=== PATIENT | male | born 1995 | race African-American/Black ===

== ENCOUNTER 2017-12-03 08:45 | Emergency (ER) | payer OTHER ==
[2017-12-03] MEDS ORDERED: SODIUM CHLORIDE 0.9% 1,000 ML IV ONE (09:16)
[2017-12-03] MEDS ORDERED: ACETAMINOPHEN 1,000 MG/100 ML 100 ML IV STA (09:16)
[2017-12-03] MEDS ORDERED: ONDANSETRON 4 MG/2 ML VIAL IVP STA (09:16)
--- NOTE | 2017-12-03 09:19 | ED Physician Documentation ---
History of Present Illness - Stated complaint Stated Complaint: N/V/HEADACHE - Chief complaint Chief Complaint: Abd Pain - Additonal information Additional information: hx from pt 22 [place] male NVD upper abd pain X 2 days head hurts when he vomits no travel no bad food no sick contacts no blood in vomit or stool no prior surgery Review of Systems Constitutional: denies: Fever, Chills Cardiac: denies: Chest pain / pressure Respiratory: denies: Dyspnea, Cough GI: reports: Abdominal Pain, Nausea, Vomiting, Diarrhea. denies: Hematemesis, Bloody / black stool Neurologic: reports: Headache (when he vomiting) Immunocompromised: denies: Immunocompromised PD PAST MEDICAL HISTORY - Present Medications Home Medications: Ambulatory Orders Medication Instructions Recorded Confirmed No Known Home Medications [No 12/03/17 12/03/17 Known Home Medications] - Allergies Allergies/Adverse Reactions: Allergies Allergy/AdvReac Type Severity Reaction Status Date / Time No Known Drug Allergies Allergy Verified 12/03/17 09:00 PD ED PE NORMAL - Vitals Vital signs reviewed: Yes - General General: Alert and oriented X 3 - HEENT HEENT: PERRL - Neck Neck: Supple, no meningeal sign - Cardiac Cardiac: RRR - Respiratory Respiratory: No respiratory distress, Clear bilaterally - Abdomen Abdomen: Other (mod TTP epigastric LUQ region s rebound or guarding) - Derm Derm: Normal color - Extremities Extremities: No deformity, Normal ROM s pain - Neuro Neuro: Alert and oriented X 3 Eye Opening: Spontaneous Motor: Obeys Commands Verbal: Oriented GCS Score: 15 Results - Vitals Vitals: Vital Signs - 24 hr 12/03/17 12/03/17 08:56 10:40 Temperature 36.2 C L Heart Rate 54 L 64 Respiratory 16 16 Rate Blood Pressure 139/76 H 124/62 O2 Saturation 96 98 Oxygen O2 Source Room air - Labs Labs: Laboratory Tests 12/03/17 12/03/17 09:05 09:05 WBC 6.1 RBC 4.72 Hgb 15.4 Hct 45.1 MCV 95.4 H MCH 32.6 H MCHC 34.1 RDW 12.9 Plt Count 172 MPV 9.2 Neut # (Auto) 4.5 Lymph # (Auto) 1.1 L [place] # (Auto) 0.4 Eos # (Auto) 0.0 Baso # (Auto) 0.1 Absolute Nucleated RBC 0.00 Nucleated RBC % 0.0 Sodium 133 L Potassium 3.8 Chloride 101 Carbon Dioxide 25 Anion Gap 7.0 BUN 16 Creatinine 1.1 Estimated GFR (MDRD) 101 Glucose 89 Calcium 9.2 Total Bilirubin 1.5 H AST 31 ALT 25 Alkaline Phosphatase 67 Total Protein 7.8 Albumin 4.2 Globulin 3.6 Albumin/Globulin Ratio 1.2 Lipase 22 PD MEDICAL DECISION MAKING - ED course ED course: bili mildly elevated but pt has no RUQ pain at all - it is LUQ better with IVF zofran and ofirmev and toradol will dc - Sepsis Event Vital Signs: Vital Signs - 24 hr 12/03/17 12/03/17 08:56 10:40 Temperature 36.2 C L Heart Rate 54 L 64 Respiratory 16 16 Rate Blood Pressure 139/76 H 124/62 O2 Saturation 96 98 Oxygen O2 Source Room air Departure - Departure Disposition: 01 Home, Self Care Clinical Impression: Dehydration Vomiting Qualifiers: Vomiting type: unspecified Vomiting Intractability: non-intractable Nausea presence: with nausea Qualified Code(s): R11.2 - Nausea with vomiting, unspecified Diarrhea Qualifiers: Diarrhea type: unspecified type Qualified Code(s): R19.7 - Diarrhea, unspecified Condition: Good Instructions: ED Dehydration, ED Diet Vomiting Diarrhea Follow-Up: [facility] [Provider Group] (for a recheck tomorrow ) Comments: Your labs looked fine except for a mildly elevated liver/gallbladder test called bilirubin. But you did not hurt near your liver or gallbladder so this is not something to worry about right now. I think your symptoms are due to stomach virus. But sometimes, more serious problems like appendicitis and gallstones can start off looking like a stomach virus. So if you get worse over the next few days, especially if you develop right sided pain, please come back to the ER for us to check you again and make sure something more serious is not developing For today go home and rest and drink plenty of fluids. I prescribed zofran to keep the vomiting under control. Follow up with [facility] medical tomorrow for a recheck - but come back to the ER if worsening Forms: Activity restrictions
[2017-12-03 09:36] LABS: BASOPHILS # (AUTO) 0.1 10^3/uL (0.0-0.1); EOSINOPHILS % (AUTO) 0.5 %; HGB - HEMOGLOBIN 15.4 g/dL (14.0-18.0); LYMPHOCYTES # (AUTO) 1.1 10^3/uL (1.5-3.5); LYMPHOCYTES % (AUTO) 17.8 %; MEAN CORPUSCULAR HEMOGLOBIN 32.6 pg (27.0-31.0); MEAN CORPUSCULAR HGB CONC 34.1 g/dL (32.0-36.0); MEAN CORPUSCULAR VOLUME 95.4 fL (80.0-94.0); MEAN PLATELET VOLUME 9.2 fL (7.4-11.4); MONOCYTES # (AUTO) 0.4 10^3/uL (0.0-1.0); NEUTROPHILS # (AUTO) 4.5 10^3/uL (1.5-6.6); NEUTROPHILS % (AUTO) 73.7 %; PLT - PLATELET COUNT 172 10^3/uL (130-450); RED BLOOD COUNT 4.72 10^6/uL (4.70-6.10); RED CELL DISTRIBUTION WIDTH 12.9 % (12.0-15.0); WHITE BLOOD COUNT 6.1 x10^3/uL (4.8-10.8)
[2017-12-03 09:49] LABS: ALBUMIN 4.2 g/dL (3.2-5.5); ALBUMIN/GLOBULIN RATIO 1.2 (1.0-2.2); BILIRUBIN,TOTAL 1.5 mg/dL (0.2-1.0); CALCIUM 9.2 mg/dL (8.5-10.3); CREATININE 1.1 mg/dL (0.6-1.2); TOTAL PROTEIN 7.8 g/dL (6.7-8.2)
[2017-12-03 10:42] VITALS: BP 124/62
[2017-12-03] MEDS ORDERED: KETOROLAC 60 MG/2 ML VIAL IVP STA (10:49)
== END 2017-12-03 11:46 | disposition home or self-care (01) ==
LOC: ED 08:45
DX: E86.0 Dehydration (principal); R17 Unspecified jaundice
CPT/HCPCS: 36415; 80053; 83690; 85025; 96365; 96375; 99283; 99284; J0131

== ENCOUNTER 2018-01-03 14:48 | Emergency (ER) | payer OTHER ==
--- NOTE | 2018-01-03 18:29 | ED Physician Documentation ---
History of Present Illness - Stated complaint Stated Complaint: R FINGER LAC - Chief complaint Chief Complaint: Laceration - Additonal information Additional information: hx from pt 22 male healthy immunized AD [place] lac from metal can palmar aspect mid phalange R index Review of Systems Skin: reports: Laceration (s) PD PAST MEDICAL HISTORY - Past Medical History Past Medical History: No Cardiovascular: None Respiratory: Asthma Neuro: None Endocrine/Autoimmune: None GI: None : None HEENT: None Psych: None Musculoskeletal: None Derm: None - Past Surgical History Past Surgical History: No - Allergies Allergies/Adverse Reactions: Allergies Allergy/AdvReac Type Severity Reaction Status Date / Time No Known Drug Allergies Allergy Verified 01/03/18 15:02 - Social History Does the pt smoke?: No Smoking Status: Never smoker Does the pt drink ETOH?: Yes Does the pt have substance abuse?: No - Immunizations Immunizations are current?: Yes - POLST Patient has POLST: No PD ED PE NORMAL - Vitals Vital signs reviewed: Yes - Derm Derm: Other (lac) - Neuro Neuro: No motor deficit, Other (dec sensation radial and plamr finger distal to lac, tendon fxn intact, no active bleeding). No: No sensory deficit Results - Vitals Vitals: Vital Signs - 24 hr 01/03/18 14:57 Temperature 36.3 C L Heart Rate 75 Respiratory 18 Rate Blood Pressure 144/84 H O2 Saturation 95 Oxygen O2 Source Room air Procedures - Laceration (location) R finger Length in cm: 2 Wound type: Linear Neurovascular status: Motor intact. No: Sensory intact Tendon involvement: Tendon intact Anesthesia: Lidocaine 2% Wound Preparation: Irrigated copiously NS, To the base. No: FB identified Skin layer closure: Nylon Other: Patient tolerated well, No complications, Dressing applied, Tetanus UTD. No: Neurovascular intact Complexity: Simple PD MEDICAL DECISION MAKING - ED course ED course: wound repaired dec sensation radial side of finger possible nerve injury emphasized to pt importance of close follow up with hand - Sepsis Event Vital Signs: Vital Signs - 24 hr 01/03/18 14:57 Temperature 36.3 C L Heart Rate 75 Respiratory 18 Rate Blood Pressure 144/84 H O2 Saturation 95 Oxygen O2 Source Room air Departure - Departure Disposition: 01 Home, Self Care Clinical Impression: Laceration Condition: Good Instructions: ED Laceration Hand Follow-Up: [facility] [Provider Group] Comments: You may have injured the nerve on the thumb side of the finger Please follow up with [facility] medical tomorrow for a recheck - if still numb, you will need a referral to a hand specialist - the right index is a very important finger and close follow up is very very important Otherwise keep the wound clean, apply antibiotic ointment twice a day, wear the splint to protect the area and pulling the stitches out, and see [facility] in 10 days for suture removal Forms: Activity restrictions
[2018-01-03] MEDS: LIDOCAINE 2% 10 ML MDV SUBQ STA (19:06)
[2018-01-03 19:48] VITALS: BP 148/81
== END 2018-01-03 19:47 | disposition home or self-care (01) ==
LOC: ED 14:48
DX: S61.210A Laceration without foreign body of right index finger without damage to nail, initial encounter (principal); W26.8XXA Contact with other sharp object(s), not elsewhere classified, initial encounter; Y93.89 Activity, other specified
CPT/HCPCS: 12001; 99283

== ENCOUNTER 2018-02-03 13:33 | Outpatient (CLI) | payer OTHER | END 2018-02-03 13:34 | disposition home or self-care (01) | LOC: SC 13:33 | PROVIDERS: ATTEND Internal Medicine Pulmonary Disease | DX: G47.30 Sleep apnea, unspecified (principal); G47.10 Hypersomnia, unspecified; R06.83 Snoring; G47.8 Other sleep disorders | CPT/HCPCS: 99203; 99212 ==

== ENCOUNTER 2018-05-12 20:30 | Outpatient (CLI) | payer OTHER | END 2018-05-12 22:59 | disposition home or self-care (01) | LOC: SC 20:30 | PROVIDERS: ATTEND Internal Medicine Pulmonary Disease | DX: G47.33 Obstructive sleep apnea (adult) (pediatric) (principal); I49.9 Cardiac arrhythmia, unspecified | CPT/HCPCS: 95811 ==

== ENCOUNTER 2018-07-29 11:34 | Emergency (ER) | payer OTHER ==
[2018-07-29 11:45] VITALS: BP 133/78
[2018-07-29] MEDS ORDERED: PROPARACAINE 0.5% OPHTH DROPS 15 ML LEFTEYE STA (12:40)
[2018-07-29] MEDS ORDERED: SODIUM CHLORIDE 0.9% 1,000 ML IV ONE (13:07)
[2018-07-29] MEDS ORDERED: ERYTHROMYCIN OPHTH OINT 1 GM TUBE TOP STA (13:40)
--- NOTE | 2018-07-29 13:42 | ED Physician Documentation ---
PD HPI OPHTHO - Stated complaint Stated Complaint: CHEMICAL IN EYES - Chief complaint Chief Complaint: Heent - Additional information Additional information: 23-year-old male presents the emergency department after having a chemical splashed into his left eye at work. The patient immediately flushed his eye at work for 15-minute per their protocol. The patient denies any loss of vision or change in vision. The patient says his eye feels funny but denies foreign body sensation or ocular pain or swelling. The patient does wear glasses intermittently for reading but has no other corrective lenses. No other associated symptoms. Symptoms are described as mild. Review of Systems Constitutional: denies: Fever, Chills, Fatigue Eyes: reports: Irritation. denies: Loss of vision, Decreased vision, Photophobia Ears: denies: Ear pain Nose: denies: Congestion Cardiac: denies: Chest pain / pressure GI: denies: Abdominal Pain Neurologic: denies: Focal weakness PD PAST MEDICAL HISTORY - Past Medical History Cardiovascular: None Respiratory: Asthma Neuro: None Endocrine/Autoimmune: None GI: None : None HEENT: None Psych: None Musculoskeletal: None Derm: None - Past Surgical History Past Surgical History: No - Allergies Allergies/Adverse Reactions: Allergies Allergy/AdvReac Type Severity Reaction Status Date / Time No Known Drug Allergies Allergy Verified 07/29/18 11:45 - Social History Does the pt smoke?: No Smoking Status: Never smoker Does the pt drink ETOH?: Yes Does the pt have substance abuse?: No - Immunizations Immunizations are current?: Yes - POLST Patient has POLST: No PD ED PE NORMAL - General General: Alert and oriented X 3, No acute distress - HEENT HEENT: Atraumatic, PERRL - Extremities Extremities: No deformity - Neuro Neuro: Alert and oriented X 3, Normal speech - Psych Psych: Normal mood PD ED PE EXPANDED - Eyes Eyes: Left eye, Normal eyelids, No eyelid FB (everted), Injected conj/sclera, Normal corneas, Anterior chambers clear, Other (The pH of the eye was 7.0). No: Eyelid injury, Eyelid swelling, Eyelid erythema, Exudate, Scleral icterus, Fluorescein uptake, Hyphema, Ant chamber cells/flare Results - Vitals Vitals: Vital Signs - 24 hr 07/29/18 11:42 Temperature 36.5 C Heart Rate 68 Respiratory 14 Rate Blood Pressure 133/78 H O2 Saturation 95 Oxygen O2 Source Room air PD MEDICAL DECISION MAKING - ED course ED course: The patient's eye was irrigated again with 1000 mL's of normal saline with a Branden's lens. The patient's pH is within normal limits. The patient will be discharged home And has been advised to follow-up with medical on base of his symptoms not improving he will get a referral to ophthalmology. The patient will return to the emergency department for any worsening or any concerns. Departure - Departure Disposition: 01 Home, Self Care Clinical Impression: Chemical exposure of eye Condition: Good Instructions: Corneal Injury Follow-Up: [facility] [Provider Group] - Within 3 Days (If your symptoms are not improving please ask for referral to ophthalmology) Comments: Please return to the emergency department for any worsening or any concerns
== END 2018-07-29 13:49 | disposition home or self-care (01) ==
LOC: ED 11:34
DX: H57.89 Other specified disorders of eye and adnexa (principal); Z77.098 Contact with and (suspected) exposure to other hazardous, chiefly nonmedicinal, chemicals; X58.XXXA Exposure to other specified factors, initial encounter; Y93.89 Activity, other specified; Y99.0 Civilian activity done for income or pay
CPT/HCPCS: 99283; J3490

== ENCOUNTER 2018-08-29 16:10 | Outpatient (CLI) | payer OTHER | END 2018-08-29 16:11 | disposition home or self-care (01) | LOC: SC 16:10 | PROVIDERS: ATTEND Nurse Practitioner Family | DX: G47.33 Obstructive sleep apnea (adult) (pediatric) (principal); I49.9 Cardiac arrhythmia, unspecified | CPT/HCPCS: 99212; 99214 ==

== ENCOUNTER 2018-11-08 15:42 | Outpatient (CLI) | payer OTHER | END 2018-11-08 15:43 | disposition home or self-care (01) | LOC: SC 15:42 | PROVIDERS: ATTEND Nurse Practitioner Family | DX: G47.33 Obstructive sleep apnea (adult) (pediatric) (principal) | CPT/HCPCS: 99212; 99214 ==

== ENCOUNTER 2018-12-07 17:01 | Emergency (ER) | payer OTHER ==
[2018-12-07 17:07] VITALS: BP 149/82
[2018-12-07] MEDS ORDERED: KETOROLAC 60 MG/2 ML VIAL IM STA (17:24)
[2018-12-07] MEDS ORDERED: CHERRY SYRUP 10 ML UDC PO ONE (17:25)
[2018-12-07] MEDS ORDERED: DEXAMETHASONE 10 MG/ML VIAL PO STA (17:25)
[2018-12-07] MEDS ORDERED: oxyCODONE 5 MG TABLET PO STA (17:27)
--- NOTE | 2018-12-07 17:27 | ED Physician Documentation ---
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 His pain started suddenly 1 hour prior to arrival while doing PT in the gym. He was doing a twisting activity when he felt a "pop" in his lower back. He denies numbness or weakness in his lower extremities, but the pain does radiate down his right leg. He denies urinary incontinence or fever. He denies history of similar symptoms in the past. Review of Systems Constitutional: denies: Fever Nose: denies: Congestion Cardiac: denies: Chest pain / pressure Respiratory: denies: Dyspnea, Cough GI: denies: Abdominal Pain, Nausea, Vomiting : denies: Dysuria, Incontinent Skin: denies: Rash Musculoskeletal: reports: Back pain Neurologic: denies: Focal weakness, Numbness PD PAST MEDICAL HISTORY - Past Medical History Past Medical History: No Cardiovascular: None Respiratory: Asthma Neuro: None Endocrine/Autoimmune: None GI: None : None HEENT: None Psych: None Musculoskeletal: None Derm: None - Past Surgical History Past Surgical History: No - Present Medications Home Medications: Ambulatory Orders Medication Instructions Recorded Confirmed Hydrocodone/Acetaminophen 1 - 2 each PO Q6H PRN #14 tablet 12/07/18 [Hydrocodon-Acetaminophen 5-325] Ibuprofen [Ibu] 800 mg PO TID PRN #30 tablet 12/07/18 Lidocaine Patch 5% [Lidoderm Patch] 1 patch TOP DAILY PRN #10 patch 12/07/18 - Allergies Allergies/Adverse Reactions: Allergies Allergy/AdvReac Type Severity Reaction Status Date / Time No Known Drug Allergies Allergy Verified 12/07/18 17:06 - Social History Does the pt smoke?: No Smoking Status: Never smoker Does the pt drink ETOH?: Yes Does the pt have substance abuse?: No - Immunizations Immunizations are current?: Yes - POLST Patient has POLST: No PD ED PE NORMAL - Vitals Vital signs reviewed: Yes (Borderline systolic hypertension.) - General General: Alert and oriented X 3, Well developed/nourished - HEENT HEENT: Atraumatic - Neck Neck: No bony TTP - Cardiac Cardiac: RRR - Respiratory Respiratory: No respiratory distress, Clear bilaterally - Abdomen Abdomen: Soft, Non tender - Back Back: No CVA TTP, No spinal TTP, Other (Tenderness to palpation in the lower lumbar region, and the right sacroiliac region. No specific tenderness to palpation along the spinous processes.) - Derm Derm: No rash - Extremities Extremities: No edema, No calf tenderness / cord, Other (Straight leg raise test is positive on the right at 20 degrees elevation; negative on the left.) - Neuro Neuro: Alert and oriented X 3, No motor deficit, No sensory deficit, Other (Deep tendon reflexes are 2+ and equal bilaterally at the patellar and Achilles tendons.) Results - Vitals Vitals: Vital Signs - 24 hr 12/07/18 17:04 Temperature 36.8 C Heart Rate 85 Respiratory 16 Rate Blood Pressure 149/82 H O2 Saturation 97 Oxygen O2 Source Room air PD MEDICAL DECISION MAKING - ED course Complexity details: re-evaluated patient, considered differential, d/w patient ED course: The patient's lower back pain is most consistent with acute low back strain. The clinical presentation does not suggest epidural abscess, spinal stenosis, or cauda equina syndrome. Treatment in the emergency department included administration of Toradol 60 mg IM, oxycodone 5 mg orally, and dexamethasone 10 mg orally. The patient is being discharged with prescription for ibuprophen, lidoderm patch, and vicodin, 14 tablets. I discussed with him the expected course of illness, symptomatic treatment and outpatient follow-up, as well as potentially worrisome signs or symptoms that should prompt reevaluation in the emergency department. Departure - Departure Disposition: 01 Home, Self Care Clinical Impression: Acute lumbosacral myofascial strain Qualifiers: Encounter type: initial encounter Qualified Code(s): S39.012A - Strain of muscle, fascia and tendon of lower back, initial encounter Condition: Stable Instructions: ED Sprain Strain Lumbar Follow-Up: [facility] [Provider Group] Prescriptions: Hydrocodone/Acetaminophen [Hydrocodon-Acetaminophen 5-325] 1 - 2 each PO Q6H PRN #14 tablet PRN Reason: pain Ibuprofen [Ibu] 800 mg PO TID PRN #30 tablet PRN Reason: Pain Lidocaine Patch 5% [Lidoderm Patch] 1 patch TOP DAILY PRN #10 patch PRN Reason: pain Comments: Apply ice pack to your lower back intermittently for the next 3 or 4 days. You can use ibuprofen, up to 800 mg 3 times daily for its anti-inflammatory effect. Apply Lidoderm Patch daily as prescribed. You can use as Vicodin as prescribed if needed for pain. Let pain be your guide to activity level. Follow up with your primary physician within 1-2 weeks. Call to schedule an appointment. Return to the emergency department if you develop increasing pain, numbness or weakness, urinary incontinence, or otherwise worsening symptoms. Forms: Activity restrictions
== END 2018-12-07 18:04 | disposition home or self-care (01) ==
LOC: ED 17:01
DX: S39.012A Strain of muscle, fascia and tendon of lower back, initial encounter (principal); X50.1XXA Overexertion from prolonged static or awkward postures, initial encounter; Y93.79 Activity, other specified sports and athletics; Y92.39 Other specified sports and athletic area as the place of occurrence of the external cause
CPT/HCPCS: 96372; 99283; A9270

== ENCOUNTER 2019-02-28 04:45 | Emergency (ER) | payer OTHER ==
[2019-02-28 05:30] LABS: BASOPHILS # (AUTO) 0.1 10^3/uL (0.0-0.1); BASOPHILS % (AUTO) 1.1 %; EOSINOPHILS # (AUTO) 0.1 10^3/uL (0.0-0.7); EOSINOPHILS % (AUTO) 2.2 %; HGB - HEMOGLOBIN 15.2 g/dL (14.0-18.0); LYMPHOCYTES # (AUTO) 1.4 10^3/uL (1.5-3.5); LYMPHOCYTES % (AUTO) 25.8 %; MEAN CORPUSCULAR HEMOGLOBIN 32.2 pg (27.0-31.0); MEAN CORPUSCULAR HGB CONC 33.9 g/dL (32.0-36.0); MEAN CORPUSCULAR VOLUME 95.1 fL (80.0-94.0); MEAN PLATELET VOLUME 10.6 fL (7.4-11.4); MONOCYTES # (AUTO) 0.5 10^3/uL (0.0-1.0); MONOCYTES % (AUTO) 8.3 %; NEUTROPHILS # (AUTO) 3.5 10^3/uL (1.5-6.6); NEUTROPHILS % (AUTO) 62.4 %; PLT - PLATELET COUNT 222 10^3/uL (130-450); RED BLOOD COUNT 4.72 10^6/uL (4.70-6.10); WHITE BLOOD COUNT 5.6 x10^3/uL (4.8-10.8)
[2019-02-28 05:42] LABS: ALBUMIN 4.7 g/dL (3.2-5.5); ALBUMIN/GLOBULIN RATIO 1.5 (1.0-2.2); BILIRUBIN,TOTAL 1.6 mg/dL (0.2-1.0); TOTAL PROTEIN 7.9 g/dL (6.7-8.2)
[2019-02-28 06:26] LABS: BILIRUBIN,URINE NEGATIVE (NEGATIVE); GLUCOSE, URINE (UA) NEGATIVE (NEGATIVE); KETONES,URINE (UA) 40 mg/dL (NEGATIVE); LEUKOCYTE ESTERASE, URINE NEGATIVE (NEGATIVE); NITRITE,URINE NEGATIVE (NEGATIVE); OCCULT BLOOD,URINE NEGATIVE (NEGATIVE); PROTEIN,URINE NEGATIVE (NEGATIVE); UROBILINOGEN,URINE 1 (NORMAL) E.U./dL (NORMAL)
[2019-02-28 06:30] LABS: CLARITY,URINE CLEAR (CLEAR)
--- NOTE | 2019-02-28 07:22 | ED Physician Documentation ---
PD HPI NVD - Stated complaint Stated Complaint: DIZZY/SOA/N/V - Chief complaint Chief Complaint: General - History obtained from History obtained from: Patient - History of Present Illness Timing - onset: How many days ago (2-3) Timing - duration: Days (2-3) Timing - details: Gradual onset Associated symptoms: Fever, Abdominal pain (crampy lower/mid abd pain) Contributing factors: No: Sick contact, Bad food, Travel, Recent antibiotics Worsened by: Eating Similar symptoms before: Has not had sx before Review of Systems Constitutional: reports: Fever, Chills Nose: denies: Rhinorrhea / runny nose, Congestion Throat: denies: Sore throat Respiratory: denies: Cough, Wheezing GI: reports: Abdominal Pain, Nausea, Diarrhea. denies: Abdominal Swelling, Vomiting : denies: Dysuria, Frequency PD PAST MEDICAL HISTORY - Past Medical History Past Medical History: No Cardiovascular: None Respiratory: Asthma Neuro: None Endocrine/Autoimmune: None GI: None : None HEENT: None Psych: None Musculoskeletal: None Derm: None - Past Surgical History Past Surgical History: Yes - Present Medications Home Medications: Ambulatory Orders Medication Instructions Recorded Confirmed Dicyclomine [Bentyl] 10 mg PO QID PRN #12 capsule 02/28/19 Diphenoxylate/Atropine [Lomotil] 1 each PO QID PRN #12 tablet 02/28/19 Ondansetron Odt [Zofran] 4 mg TL Q6H PRN #10 tablet 02/28/19 - Allergies Allergies/Adverse Reactions: Allergies Allergy/AdvReac Type Severity Reaction Status Date / Time No Known Drug Allergies Allergy Verified 02/28/19 05:07 - Social History Does the pt smoke?: No Smoking Status: Never smoker Does the pt drink ETOH?: No Does the pt have substance abuse?: No - Immunizations Immunizations are current?: Yes - POLST Patient has POLST: No PD ED PE NORMAL - Vitals Vital signs reviewed: Yes - General General: Alert and oriented X 3, No acute distress, Well developed/nourished - HEENT HEENT: Pharynx benign - Neck Neck: Supple, no meningeal sign, No adenopathy - Cardiac Cardiac: RRR, No murmur - Respiratory Respiratory: Clear bilaterally - Abdomen Abdomen: Normal bowel sounds, Soft, Non distended, No organomegaly, Other (ten joceline periumbilical and some RLQ with mild guarding but no percussion tenderness. ) - Derm Derm: Normal color, Warm and dry - Extremities Extremities: Normal ROM s pain - Neuro Neuro: Alert and oriented X 3, No motor deficit, Normal speech Results - Vitals Vitals: Vital Signs - 24 hr 02/28/19 02/28/19 02/28/19 05:04 05:16 08:47 Temperature 36.9 C 36.5 C Heart Rate 59 L 50 L Respiratory 16 16 18 Rate Blood Pressure 153/71 H 143/75 H O2 Saturation 98 99 Oxygen O2 Source Room air - Labs Labs: Laboratory Tests 02/28/19 02/28/19 02/28/19 05:24 05:24 06:00 WBC 5.6 RBC 4.72 Hgb 15.2 Hct 44.9 MCV 95.1 H MCH 32.2 H MCHC 33.9 RDW 12.0 Plt Count 222 MPV 10.6 Neut # (Auto) 3.5 Lymph # (Auto) 1.4 L [place] # (Auto) 0.5 Eos # (Auto) 0.1 Baso # (Auto) 0.1 Absolute Nucleated RBC 0.00 Nucleated RBC % 0.0 Sodium 139 Potassium 4.0 Chloride 102 Carbon Dioxide 25 Anion Gap 12.0 BUN 14 Creatinine 1.0 Estimated GFR (MDRD) 112 Glucose 98 Calcium 10.0 Total Bilirubin 1.6 H AST 39 ALT 35 Alkaline Phosphatase 58 Total Protein 7.9 Albumin 4.7 Globulin 3.2 Albumin/Globulin Ratio 1.5 Lipase 25 Urine Color YELLOW Urine Clarity CLEAR Urine pH 6.0 Ur Specific [place] 1.025 Urine Protein NEGATIVE Urine Glucose (UA) NEGATIVE Urine Ketones 40 H Urine Occult Blood NEGATIVE Urine Nitrite NEGATIVE Urine Bilirubin NEGATIVE Urine Urobilinogen 1 (NORMAL) Ur Leukocyte Esterase NEGATIVE Ur Microscopic Review NOT INDICATED Urine Culture Comments NOT INDICATED - Rads (name of study) abd CT Radiology: Prelim report reviewed (no appendicitis), EMP read contemporaneously, See rad report PD MEDICAL DECISION MAKING - ED course Complexity details: re-evaluated patient (feeling better with fluids and meds. ), considered differential (consider GE vs appy), d/w patient Departure - Departure Disposition: 01 Home, Self Care Clinical Impression: Gastroenteritis Condition: Stable Record reviewed to determine appropriate education?: Yes Instructions: ED Gastroenteritis Viral Follow-Up: [facility] [place] [Provider Group] Prescriptions: Dicyclomine [Bentyl] 10 mg PO QID PRN #12 capsule PRN Reason: Abdominal Pain Diphenoxylate/Atropine [Lomotil] 1 each PO QID PRN #12 tablet PRN Reason: Diarrhea Ondansetron Odt [Zofran] 4 mg TL Q6H PRN #10 tablet PRN Reason: Nausea / Vomiting Comments: Your CT scan did not show any signs of appendicitis or other localized problem. This sounds like likely to be a viral gastric or enteritis which means like a stomach flu virus. I would anticipate your being ill for a day or 2 more. This small frequent fluids and bland food initially. Try to stay well-hydrated. Ondansetron if needed for nausea. Lomotil if needed for diarrhea. Tylenol ibuprofen as needed for pains. Dicyclomine if needed for cramps. Recheck if not improved well over the next day or 2. Rest off work today and possibly tomorrow. Forms: Activity restrictions Discharge Date/Time: 02/28/19 09:29
[2019-02-28] MEDS ORDERED: SODIUM CHLORIDE 0.9% 1,000 ML IV ONE ×2 (07:32→07:33)
[2019-02-28] MEDS ORDERED: ONDANSETRON 4 MG/2 ML VIAL IVP STA (07:33)
[2019-02-28] MEDS ORDERED: MORPHINE 2 MG/ML CARPUJECT IVP STA (07:33)
[2019-02-28] MEDS ORDERED: KETOROLAC 30 MG/ML VIAL IVP STA (07:33)
[2019-02-28] MEDS ORDERED: IOVERSOL 320 100 ML VIAL IVP ONE ×2 (07:52→16:15)
--- NOTE | 2019-02-28 08:40 | CT Report ---
Reason: abd pain, vomiting; tender mid abd Procedure Date: 02/28/2019 Accession Number: [id number] / [id number] Procedure: CT - Abdomen/Pelvis W CPT Code: FULL RESULT: EXAM: CT ABDOMEN AND PELVIS EXAM DATE: 02/28/2019 08:20 AM. CLINICAL HISTORY: Abdominal pain, vomiting; tender mid abdomen. COMPARISONS: None. TECHNIQUE: Routine helical CT imaging was performed through the abdomen and pelvis. IV contrast: OPTI 320 100ML. Enteric contrast: No. Reconstructions: Coronal and sagittal. In accordance with CT protocol optimization, one or more of the following dose reduction techniques were utilized for this exam: automated exposure control, adjustment of mA and/or KV based on patient size, or use of iterative reconstructive technique. FINDINGS: Lung Bases: Unremarkable. Liver: Focal decreased attenuation along falciform ligament with geographic margins on coronal series is most compatible with focal fat deposition. Vessels in this region do not appear to be affected or displaced. A second, similar area of geographic decreased attenuation is noted along the posterior aspect of medial left liver lobe adjacent to lenny hepatis. Gallbladder/Bile Ducts: Unremarkable. Spleen: Normal. Small splenule. Pancreas: Normal. Adrenal Glands: Normal. Kidneys: Normal. No masses or hydronephrosis. Peritoneal Cavity/Bowel: Although there are several fluid distended small bowel loops within the left hemiabdomen, there is no significant dilatation to suggest obstruction. Retrocecal appendix is well visualized extending near the posterior liver margin and normal. Pelvic Organs: Normal. The bladder and visualized pelvic organs are within normal limits. Vasculature: No aneurysms or other significant abnormality. Bones: No significant abnormality. Other: None. IMPRESSION: No evidence for bowel obstruction or acute inflammatory process. [facility]
[2019-02-28 08:47] VITALS: BP 143/75
[2019-02-28] MEDS ORDERED: DIPHENOX/ATROPINE 2.5/0.025 MG TABLET PO STA (08:56)
== END 2019-02-28 09:29 | disposition home or self-care (01) ==
LOC: ED 04:45
DX: K52.9 Noninfective gastroenteritis and colitis, unspecified (principal)
CPT/HCPCS: 36415; 74177; 80053; 81003; 83690; 85025; 96374; 96375; 99284; A9270; Q9967; 81001; 87086

== ENCOUNTER 2019-03-02 03:58 | Emergency (ER) | payer OTHER ==
--- NOTE | 2019-03-02 04:07 | ED Physician Documentation ---
PD HPI URI - Stated complaint Stated Complaint: SOA/SWOLLEN THROAT - Chief complaint Chief Complaint: General - History obtained from History obtained from: Patient - History of Present Illness Timing - onset: How many days ago (6) Timing duration: Days (6) Timing details: Abrupt onset, Still present (He started with illness 6 days ago with some congestion and cough. However it was predominantly nausea vomiting and diarrhea with some abdominal cramping. He was seen in the ER 1-1/2 days ago for those symptoms predominantly and had IV fluids and antiemetics and antidiarrheals. He was given prescriptions for nausea and diarrhea. He had blood tests and a CT scan of the belly for concern of appendicitis due to some tenderness in the lower right. The scan was normal. Since that time he has had increase in the upper respiratory symptoms with sore throat coughing and some wheezing. He is only had one more emesis in the last day. He states his stool is still loose. He had a feeling of trouble breathing tonight and so called the ambulance to be brought in for evaluation. He had not had that much of a cough when seen in the ER previously.) Associated symptoms: Fever, Chills, Nasal congestion, Dry cough, Chest pain (right upper with breathing and cough.), NVD Contributing factors: No: Sick contact, Travel Similar symptoms before: Has not had sx before Recently seen: Emergency Dept (1 1/2 days ago for more N/V/D symptoms at that time) - Treatment prior to arrival Treatment prior to arrival: He was given some IV fluids and an albuterol nebulizer treatment prior to arrival. Review of Systems Constitutional: reports: Fever, Chills, Myalgias Nose: reports: Congestion. denies: Rhinorrhea / runny nose Throat: reports: Sore throat Respiratory: reports: Dyspnea, Cough, Wheezing GI: reports: Nausea, Vomiting, Diarrhea. denies: Abdominal Swelling Skin: denies: Rash Neurologic: denies: Altered mental status, Headache PD PAST MEDICAL HISTORY - Past Medical History Cardiovascular: None Respiratory: Asthma Neuro: None Endocrine/Autoimmune: None GI: None : None HEENT: None Psych: None Musculoskeletal: None Derm: None - Past Surgical History Past Surgical History: Yes - Present Medications Home Medications: Ambulatory Orders Medication Instructions Recorded Confirmed Dicyclomine [Bentyl] 10 mg PO QID PRN #12 capsule 02/28/19 Diphenoxylate/Atropine [Lomotil] 1 each PO QID PRN #12 tablet 02/28/19 Ondansetron Odt [Zofran] 4 mg TL Q6H PRN #10 tablet 02/28/19 Albuterol Sulf [Ventolin Hfa 1 - 2 puffs INH Q4HR PRN #1 inhaler 03/02/19 Inhaler] Hydrocodone/Acetaminophen [[place] 1 each PO Q6H PRN #15 tablet 03/02/19 5-325 Tablet] dexAMETHasone [Decadron] 4 mg PO DAILY #5 tablet 03/02/19 - Allergies Allergies/Adverse Reactions: Allergies Allergy/AdvReac Type Severity Reaction Status Date / Time No Known Drug Allergies Allergy Verified 03/02/19 04:05 - Social History Does the pt smoke?: No Smoking Status: Never smoker Does the pt drink ETOH?: No Does the pt have substance abuse?: No - Immunizations Immunizations are current?: Yes - POLST Patient has POLST: No PD ED PE NORMAL - Vitals Vital signs reviewed: Yes - General General: Alert and oriented X 3, No acute distress, Well developed/nourished - HEENT HEENT: No: Pharynx benign (some redness without edema nor exudate in tonsils. No peritonsillar swelling. Some uvular swelling. ) - Neck Neck: Supple, no meningeal sign, No adenopathy - Cardiac Cardiac: RRR, No murmur - Respiratory Respiratory: No: Clear bilaterally (some mild scattered wheezing. No coarse sounds. ) - Abdomen Abdomen: Soft, Non tender - Back Back: No CVA TTP - Derm Derm: Normal color, Warm and dry - Extremities Extremities: No edema, No calf tenderness / cord - Neuro Neuro: Alert and oriented X 3, No motor deficit, Normal speech Eye Opening: Spontaneous Motor: Obeys Commands Verbal: Oriented GCS Score: 15 - Psych Psych: Normal mood Results - Vitals Vitals: Vital Signs - 24 hr 03/02/19 03/02/19 03/02/19 03:59 04:05 04:54 Temperature 36.2 C L 36.2 C L Heart Rate 65 62 62 Respiratory 16 16 16 Rate Blood Pressure 149/67 H 149/67 H 134/59 H O2 Saturation 98 96 97 03/02/19 06:05 Temperature Heart Rate 74 Respiratory 16 Rate Blood Pressure 123/59 L O2 Saturation 95 Oxygen O2 Source Room air - Labs Labs: Laboratory Tests 03/02/19 04:20 Group A Strep Rapid Negative PD MEDICAL DECISION MAKING - ED course Complexity details: re-evaluated patient (feeling better with neb, and IV meds. Resting well and breathing easily. ), considered differential (has more URI symptoms now. Strep negative and CXR clear. Still presume viral. Will give fluids, steroids, Toradol, pain meds. ), d/w patient Departure - Departure Disposition: Home, Self Care Clinical Impression: Viral illness, Cough in adult Dyspnea Qualifiers: Dyspnea type: shortness of breath Qualified Code(s): R06.02 - Shortness of breath; R06.00 - Dyspnea, unspecified; R06.01 - Orthopnea Condition: Stable Record reviewed to determine appropriate education?: Yes Prescriptions: Albuterol Sulf [Ventolin Hfa Inhaler] 1 - 2 puffs INH Q4HR PRN #1 inhaler PRN Reason: Shortness Of Air/Wheezing dexAMETHasone [Decadron] 4 mg PO DAILY #5 tablet Hydrocodone/Acetaminophen [[place] 5-325 Tablet] 1 each PO Q6H PRN #15 tablet PRN Reason: Pain Comments: Frequent fluids and food as able. Continue the prior medications for nausea and diarrhea as needed. Add an albuterol inhaler 2 puffs 4 times a day to help improve breathing and reduce coughing. Decadron steroid for 5 more days daily. Hydrocodone as needed for cough and pain. Off work another 1 to 2 days. Follow-up with your primary care in 2 days. Forms: Activity restrictions Discharge Date/Time: 03/02/19 06:30
[2019-03-02] MEDS ORDERED: SODIUM CHLORIDE 0.9% 1,000 ML IV ONE ×2 (04:08→05:16)
[2019-03-02] MEDS ORDERED: DEXAMETHASONE 10 MG/ML VIAL IVP STA (04:08)
[2019-03-02] MEDS ORDERED: KETOROLAC 30 MG/ML VIAL IVP STA (04:08)
[2019-03-02] MEDS ORDERED: HYDROmorphone 1 MG/ML CARPUJECT IVP STA (04:48)
--- NOTE | 2019-03-02 04:55 | XRAY Report ---
Reason: dyspnea/ cough Procedure Date: 03/02/2019 Accession Number: [id number] / [id number] Procedure: XR - Chest 2 View X-Ray CPT Code: 14013 FULL RESULT: EXAM: CHEST RADIOGRAPHY EXAM DATE: 03/02/2019 04:34 AM. CLINICAL HISTORY: Dyspnea/ cough. COMPARISON: ABDOMEN/PELVIS W/ 02/28/2019 7:58 AM. TECHNIQUE: 2 views. FINDINGS: Lungs/Pleura: No focal opacities evident. No pleural effusion. No pneumothorax. Normal volumes. Mediastinum: Heart and mediastinal contours are unremarkable. Other: None. IMPRESSION: Normal 2-view chest radiography. [facility]
[2019-03-02 06:05] VITALS: BP 123/59
== END 2019-03-02 06:30 | disposition home or self-care (01) ==
LOC: EDUNIT# → ED 03:58
DX: B34.9 Viral infection, unspecified (principal); R05 Cough; R06.02 Shortness of breath; R06.01 Orthopnea; J45.909 Unspecified asthma, uncomplicated
CPT/HCPCS: 71046; 87070; 87077; 87430; 96361; 96374; 96375; 99284; J1170

== ENCOUNTER 2019-03-30 12:58 | Outpatient (CLI) | payer OTHER ==
[2019-03-30 13:40] VITALS: BP 116/60
--- NOTE | 2019-03-30 13:40 | SLEEP CARE CONSULTATION ---
Information from patient questionnaire entered by Jesica Arizmendi. I have reviewed and concur with the information entered by Jesica Arizmendi. This document represents the service I personally performed and the decisions made by me, Sabrina Simms, RN, MSN, EQUIPMENT APPLICATION SPECIALIST. History of Present Illness Previous diagnosis: Very Severe, Obstructive Sleep Apnea-Hypopnea Syndrome AHI: 60.2 Reason for CPAP/BiPAP follow up: other (5 month) Equipment type: CPAP Equipment obtained from: [employer] Mask style: Nasal (Wisp) Mask brand: Respironics Backup mask available: Yes Last cushion change: last week HPI additional information: He has lost significant weight with reduction of alcohol intake. 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 He had a mask refitting but the original wisp nasal mask is better. Mask leaks are now controlled with better adjustment of headgear. CPAP Compliance Data - Data Reviewed with Patient Average duration of nightly device use: 5.45 Compliance rate %: 74.4 (90 days) Current pressure setting (cmH2O): 10-12 Humidity settin Heated hose settin Average residual AHI: 3.7 Average large leak: 2 mins 11 sec Subjective Missed days of use due to: reports: other (falling asleep without CPAP and ) Patient concerns: denies: aerophagia, mask discomfort, air blowing in eyes, mask leak noise, condensation in mask/hose, nasal congestion, dry mouth, nose, throat, epistaxis Observed to snore while using device: No Current pressure setting perceived as: comfortable On therapy, patient: reports: sleeping better, awakening more refreshed, being more awake and alert during the day, more rested overall. denies: drowsiness while driving Initial Independence Sleepiness Scale score: 19 Current Independence Sleepiness Scale score: 6 Allergies and Home Medications Known drug allergies: No Home medication list reviewed: Yes Allergy and home medication list: Tylenol As needed Motrin As needed Albuteral rescue inhaler as needed Review of Systems Review of systems same as previous: No (Emergency room visit due to exacerbation of asthma and dehydration. ) Physical Exam Blood Pressure: 116/60 Cuff size: long Heart Rate: 68 O2 Saturation: 98 Height: 5 ft 9.75 in Weight: 225 lb 4.8 oz Weight change since last visit: lost 23 pounds Body Mass Index: 32.5 BMI Classification: Obesity Class 1 Impression and Plan 1. Obstructive Sleep Apnea-Hypopnea Syndrome, very severe, with good treatment compliance and good apnea control. On CPAP therapy, the patient has better sleep quality and is more rested overall. He has lost significant weight - reducing BMI from 34 to 32. We looked at the BMI chart and discussed how obesity increases the risk of apnea and overall health risks. Since he is planning on losing about 25 more pounds which will bring him out of the obesity range, I will adjust his autoCPAP to [id number] to accomodate future weight loss. If the pressure is uncomfortable, he is to contact me. 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 Thus he is advised to contact his PCM for a prescription for his CPAP battery and deployment supplies for 6 months.He was reminded not to use the humidity with using the battery due to extra power it takes. He is also to bring his saline nasal spray to use as needed. Patient's apnea severity and rationale for treatment to reduce apnea, improve sleep quality and reduce cardiovascular and cerebrovascular events was reviewed. I emphasized the importance of using CPAP with all sleep for maximum benefit of treatment. I also reviewed the benefit of consistent device use of CPAP for depression/anxiety. He has noted improvement. He is also praised for alcohol reduction and encouraged to continue for overall health as well as eat healthy content. * * Change CPAP pressure to 8-12 cmH2O * Follow up with PCP for CPAP battery and deployment supplies * Notify me if snoring with mask or feeling that the pressure is too much or too little * Continue to lose weight * Return for follow up in 1 year, or sooner if concerns arise I spent 100% of this 30 minute visit face to face with the patient with greater than 50% of this was spent time counseling the patient and coordination of care.
== END 2019-03-30 12:59 | disposition home or self-care (01) ==
LOC: SC 12:58
PROVIDERS: ATTEND Nurse Practitioner Family
DX: G47.33 Obstructive sleep apnea (adult) (pediatric) (principal); E66.9 Obesity, unspecified; Z68.32 Body mass index [BMI] 32.0-32.9, adult
CPT/HCPCS: 99212; 99214

== ENCOUNTER 2019-08-22 22:53 | Emergency (ER) | payer OTHER ==
[2019-08-22] MEDS ORDERED: IBUPROFEN 600 MG TABLET PO STA (23:31)
[2019-08-22] MEDS ORDERED: ACETAMINOPHEN 325 MG TABLET PO STA (23:31)
[2019-08-22] MEDS ORDERED: methocarbamoL 500 MG TABLET PO STA (23:32)
--- NOTE | 2019-08-23 00:27 | XRAY Report ---
Reason: R shoulder pain worsening today Procedure Date: 08/22/2019 Accession Number: [id number] / [id number] Procedure: XR - Shoulder 3 View RT CPT Code: Final Report FULL RESULT: EXAM: RIGHT SHOULDER RADIOGRAPHY EXAM DATE: 08/22/2019 11:51 PM. CLINICAL HISTORY: R shoulder pain worsening today. Right shoulder pain after lifting engine. COMPARISON: None. TECHNIQUE: 3 views. FINDINGS: Bones: Normal. No fracture or bone lesion. Joints: The glenohumeral and acromioclavicular joints are normal. Soft tissues: The visualized hemithorax is unremarkable. No soft tissue swelling. IMPRESSION: Normal shoulder radiography. [facility]
--- NOTE | 2019-08-23 00:38 | ED Physician Documentation ---
History of Present Illness - Stated complaint Stated Complaint: SHOULDER PX - Chief complaint Chief Complaint: Ext Problem - Additonal information Additional information: This is a 24-year-old male who presents with shoulder pain. He states his shoulder has been bothering Him for 3 years, possibly after a football injury, and he has seen providers which have given him physical therapy, with minimal relief. He states that his pain has been somewhat worsened over last several days and he got fed up with having to wait for a follow up appointment, which sounds like has been difficult/slow to obtain. He called an ambulance tonight to get his shoulder pain evaluated. He denies fever, denies redness of the joint, he states the pain is mild at rest but becomes severe with movement such as abducting above the head. He did not suffer any direct impact to the shoulder, and was told that he may have suffered a rotator cuff tear in the past. No neck pain, weakness, or numbness. he does have soreness in his R trapezius. Review of Systems Constitutional: denies: Fever Cardiac: denies: Chest pain / pressure Respiratory: denies: Dyspnea Musculoskeletal: reports: Extremity pain Neurologic: denies: Numbness PD PAST MEDICAL HISTORY - Past Medical History Cardiovascular: None Respiratory: Asthma Neuro: None Endocrine/Autoimmune: None GI: None : None HEENT: None Psych: None Musculoskeletal: None Derm: None - Past Surgical History Past Surgical History: Yes - Present Medications Home Medications: Ambulatory Orders Medication Instructions Recorded Confirmed Dicyclomine [Bentyl] 10 mg PO QID PRN #12 capsule 02/28/19 Diphenoxylate/Atropine [Lomotil] 1 each PO QID PRN #12 tablet 02/28/19 Ondansetron Odt [Zofran] 4 mg TL Q6H PRN #10 tablet 02/28/19 Albuterol Sulf [Ventolin Hfa 1 - 2 puffs INH Q4HR PRN #1 inhaler 03/02/19 Inhaler] Hydrocodone/Acetaminophen [[place] 1 each PO Q6H PRN #15 tablet 03/02/19 5-325 Tablet] dexAMETHasone [Decadron] 4 mg PO DAILY #5 tablet 03/02/19 methocarbamoL [Methocarbamol] 500 mg PO TID PRN #21 tablet 08/23/19 - Allergies Allergies/Adverse Reactions: Allergies Allergy/AdvReac Type Severity Reaction Status Date / Time No Known Drug Allergies Allergy Verified 08/22/19 23:22 - Social History Does the pt smoke?: No Smoking Status: Never smoker Does the pt drink ETOH?: No Does the pt have substance abuse?: No - Immunizations Immunizations are current?: Yes - POLST Patient has POLST: No PD ED PE NORMAL - Vitals Vital signs reviewed: Yes - General General: Alert and oriented X 3, No acute distress - HEENT HEENT: Atraumatic - Neck Neck: Supple, no meningeal sign, Other (No midline TTP) - Cardiac Cardiac: Other (Regular rate in the high 80s on my examination) - Respiratory Respiratory: No respiratory distress - Abdomen Abdomen: Soft, Non distended - Derm Derm: Warm and dry - Extremities Extremities: No deformity, Other (Arms are symmetric in appearance. No skin changes. Patient is some tenderness palpation of his deltoid and trapezius muscle on the right. He is able to abduct and forward flex his shoulder to 90 degrees with some discomfort. Range of motion of the elbow and wrist are normal, is 5 out of 5 strength with hand squeeze finger abduction elbow flexion extension. Sensation is intact over the arm including the axillary nerve, median radial and the ulnar nerves. 2+ distal ulnar and radial pulses.) - Neuro Neuro: Alert and oriented X 3 - Psych Psych: Normal mood, Normal affect Results - Vitals Vitals: Vital Signs - 24 hr 08/22/19 08/23/19 23:02 01:05 Temperature 36.8 C Heart Rate 99 94 Respiratory 16 16 Rate Blood Pressure 142/79 H 131/71 H O2 Saturation 98 96 Oxygen O2 Source Room air - Rads (name of study) XR shoulder Radiology: Other (No acute osseous abnormality.) PD MEDICAL DECISION MAKING - ED course Complexity details: considered differential (Strain, sprain, fracture, rotator cuff tear, labral tear, tendinitis, septic joint, impingement, radiculopathy) ED course: Patient is well-appearing on arrival, is afebrile, no signs of infection in the joint, no fever, no redness and he is able to move the joint with good range of motion. He was given Tylenol, ibuprofen, methocarbamol. This pain is been ongoing for 3 years, I highly doubt infectious etiology. X-ray was obtained and this showed no acute osseous abnormality. He is neurovascularly intact, and his presentation is not consistent with a radiculopathy at this time. I discussed with him that given the duration of his symptoms be very reasonable for him to see a sports medicine or orthopedic doctor, and provided contact information for the orthopedic group. He has been taking Flexeril which has been minimally helpful, he like to try the methocarbamol, so this was prescribed. I discussed return precautions especially with any signs of infection or neurologic symptoms, and after discussing follow-up patient was discharged home in the care of his girlfriend Departure - Departure Disposition: Home, Self Care Clinical Impression: Shoulder pain, right Qualifiers: Chronicity: chronic Qualified Code(s): M25.511 - Pain in right shoulder Condition: Good Follow-Up: Avni Tucker MD [Provider Admit Priv/Credential] - (Call for an appt) Prescriptions: methocarbamoL [Methocarbamol] 500 mg PO TID PRN #21 tablet PRN Reason: Pain Comments: You were seen today for shoulder pain. Your x-ray did not show any obvious abnormalities, your pain may be irritation of the tendons or muscles or other parts of the joint. Please continue to follow-up with your primary care provider, and at this point given how long your pain is been going on it would be reasonable to see a sports medicine doctor or an orthopedist. I provided some contact information for our orthopedic group, please call and make an appointment. You may use ibuprofen, Tylenol, and you may try the methocarbamol to see if this helps with the pain. Methocarbamol can be mildly sedating, do not combine it with other sedating medications or alcohol. If you are developing new or worsening symptoms, particularly signs of infection like we talked about such as fever or redness in the shoulder, return to the emergency department. Forms: Activity restrictions Discharge Date/Time: 08/23/19 01:09
[2019-08-23] MEDS ORDERED: oxyCODONE 5 MG TABLET PO STA (00:56)
[2019-08-23 01:09] VITALS: BP 131/71
== END 2019-08-23 01:09 | disposition home or self-care (01) ==
LOC: EDUNIT# → ED 22:53
DX: M25.511 Pain in right shoulder (principal); G89.29 Other chronic pain
CPT/HCPCS: 73030; 99283; 99284; A9270

== ENCOUNTER 2019-08-25 22:51 | Outpatient (CLI) | payer OTHER | END 2019-08-25 23:59 | disposition short-term general hospital (02) | LOC: EMS 22:51 | PROVIDERS: ATTEND Surgery | DX: R07.9 Chest pain, unspecified (principal) | CPT/HCPCS: A0425; A0427 ==

== ENCOUNTER 2019-10-22 23:22 | Outpatient (CLI) | payer OTHER | END 2019-10-22 23:59 | disposition critical access hospital (66) | LOC: EMS 23:22 | PROVIDERS: ATTEND Surgery | DX: R06.02 Shortness of breath (principal); R07.9 Chest pain, unspecified | CPT/HCPCS: A0425; A0427 ==

== ENCOUNTER 2019-10-22 23:43 | Emergency (ER) | payer OTHER ==
--- NOTE | 2019-10-22 23:37 | ED Physician Documentation ---
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 He reports he is on Methocarbamol for "something".) Review of Systems Unable to obtain: Intoxicated PD PAST MEDICAL HISTORY - Present Medications Home Medications: Ambulatory Orders Medication Instructions Recorded Confirmed methocarbamoL [Methocarbamol] 500 mg PO TID PRN #21 tablet 08/23/19 10/23/19 - Allergies Allergies/Adverse Reactions: Allergies Allergy/AdvReac Type Severity Reaction Status Date / Time No Known Drug Allergies Allergy Verified 10/22/19 23:53 PD ED PE NORMAL - Vitals Vital signs reviewed: Yes - General General: Alert and oriented X 3, No acute distress, Well developed/nourished - HEENT HEENT: Atraumatic, PERRL - Neck Neck: Supple, no meningeal sign - Cardiac Cardiac: RRR, No murmur, Strong equal pulses - Respiratory Respiratory: No respiratory distress, Clear bilaterally - Abdomen Abdomen: Normal bowel sounds, Soft, Non tender, Non distended, No organomegaly - Back Back: No CVA TTP, No spinal TTP - Derm Derm: Normal color, Warm and dry, No rash - Extremities Extremities: No deformity, No tenderness to palpate, Normal ROM s pain, No edema, No calf tenderness / cord - Neuro Neuro: Other (Clinically intoxicated) - Psych Psych: Normal mood, Normal affect Results - Vitals Vitals: Vital Signs - 24 hr 10/23/19 10/23/19 10/23/19 01:04 02:20 03:11 Temperature Heart Rate 87 93 94 Respiratory 19 23 21 Rate Blood Pressure 131/52 H 151/86 H 133/69 H O2 Saturation 96 93 95 10/23/19 10/23/19 10/23/19 03:44 04:44 06:00 Temperature 36.5 C Heart Rate 93 74 88 Respiratory 20 16 16 Rate Blood Pressure 147/60 H 142/62 H 126/69 O2 Saturation 94 98 98 Oxygen O2 Source Room air - EKG (time done) 23:45 Rate: Other (No STEMI) 01:32 Rate: Other (No STEMI) - Labs Labs: Laboratory Tests 10/23/19 10/23/19 10/23/19 00:12 00:12 00:12 WBC 4.4 L RBC 4.65 L Hgb 15.0 Hct 43.9 MCV 94.4 H MCH 32.3 H MCHC 34.2 RDW 12.2 Plt Count 217 MPV 10.3 Neut # (Auto) 2.5 Lymph # (Auto) 1.5 [place] # (Auto) 0.2 Eos # (Auto) 0.1 Baso # (Auto) 0.1 Absolute Nucleated RBC 0.00 Nucleated RBC % 0.0 PT 13.1 H INR 1.2 APTT 31.6 Sodium 138 Potassium 3.7 Chloride 104 Carbon Dioxide 20 L Anion Gap 14.0 H BUN 19 Creatinine 1.1 Estimated GFR (MDRD) 100 Glucose 93 Calcium 8.8 Total Bilirubin 0.9 AST 37 ALT 39 Alkaline Phosphatase 65 Total Creatine Kinase 215 Troponin I High Sens B-Natriuretic Peptide Total Protein 7.6 Albumin 4.5 Globulin 3.1 Albumin/Globulin Ratio 1.5 Lipase 31 TSH Urine Color Urine Clarity Urine pH Ur Specific [place] Urine Protein Urine Glucose (UA) Urine Ketones Urine Occult Blood Urine Nitrite Urine Bilirubin Urine Urobilinogen Ur Leukocyte Esterase Ur Microscopic Review Urine Culture Comments Salicylates < 6.0 Urine Opiates Screen Ur Oxycodone Screen Urine Methadone Screen Ur Propoxyphene Screen Acetaminophen < 10 L Ur Barbiturates Screen Ur Tricyclics Screen Ur Phencyclidine Scrn Ur Amphetamine Screen U Methamphetamines Scrn U Benzodiazepines Scrn Urine Cocaine Screen U Cannabinoids Screen Ethyl Alcohol 257.5 10/23/19 10/23/19 10/23/19 00:12 00:12 00:12 WBC RBC Hgb Hct MCV MCH MCHC RDW Plt Count MPV Neut # (Auto) Lymph # (Auto) [place] # (Auto) Eos # (Auto) Baso # (Auto) Absolute Nucleated RBC Nucleated RBC % PT INR APTT Sodium Potassium Chloride Carbon Dioxide Anion Gap BUN Creatinine Estimated GFR (MDRD) Glucose Calcium Total Bilirubin AST ALT Alkaline Phosphatase Total Creatine Kinase Troponin I High Sens 5.5 B-Natriuretic Peptide < 5 L Total Protein Albumin Globulin Albumin/Globulin Ratio Lipase TSH 1.43 Urine Color Urine Clarity Urine pH Ur Specific [place] Urine Protein Urine Glucose (UA) Urine Ketones Urine Occult Blood Urine Nitrite Urine Bilirubin Urine Urobilinogen Ur Leukocyte Esterase Ur Microscopic Review Urine Culture Comments Salicylates Urine Opiates Screen Ur Oxycodone Screen Urine Methadone Screen Ur Propoxyphene Screen Acetaminophen Ur Barbiturates Screen Ur Tricyclics Screen Ur Phencyclidine Scrn Ur Amphetamine Screen U Methamphetamines Scrn U Benzodiazepines Scrn Urine Cocaine Screen U Cannabinoids Screen Ethyl Alcohol 10/23/19 10/23/19 00:32 01:37 WBC RBC Hgb Hct MCV MCH MCHC RDW Plt Count MPV Neut # (Auto) Lymph # (Auto) [place] # (Auto) Eos # (Auto) Baso # (Auto) Absolute Nucleated RBC Nucleated RBC % PT INR APTT Sodium Potassium Chloride Carbon Dioxide Anion Gap BUN Creatinine Estimated GFR (MDRD) Glucose Calcium Total Bilirubin AST ALT Alkaline Phosphatase Total Creatine Kinase Troponin I High Sens 6.0 B-Natriuretic Peptide Total Protein Albumin Globulin Albumin/Globulin Ratio Lipase TSH Urine Color YELLOW Urine Clarity CLEAR Urine pH 6.0 Ur Specific [place] 1.010 Urine Protein NEGATIVE Urine Glucose (UA) NEGATIVE Urine Ketones NEGATIVE Urine Occult Blood NEGATIVE Urine Nitrite NEGATIVE Urine Bilirubin NEGATIVE Urine Urobilinogen 0.2 (NORMAL) Ur Leukocyte Esterase NEGATIVE Ur Microscopic Review NOT INDICATED Urine Culture Comments NOT INDICATED Salicylates Urine Opiates Screen NEGATIVE Ur Oxycodone Screen NEGATIVE Urine Methadone Screen NEGATIVE Ur Propoxyphene Screen NEGATIVE Acetaminophen Ur Barbiturates Screen NEGATIVE Ur Tricyclics Screen NEGATIVE Ur Phencyclidine Scrn NEGATIVE Ur Amphetamine Screen NEGATIVE U Methamphetamines Scrn NEGATIVE U Benzodiazepines Scrn NEGATIVE Urine Cocaine Screen NEGATIVE U Cannabinoids Screen NEGATIVE Ethyl Alcohol PD MEDICAL DECISION MAKING - ED course Complexity details: reviewed results, re-evaluated patient (06:00 Patient is clinically sober at this time. Patient has clear speech, steady gait and is tolerated p.o. challenge his CT of the chest was negative EKG did show some abnormalities but his troponin is now x2 has been chest pain-free since he arrived in the emergency department and remains chest pain-free throughout his stay here. He has follow-up this morning at [facility] would be in medical clinic at 7 AM.), considered differential (Patient does have an abnormal appearing EKG that is no obvious STEMI his troponins negative his second EKG is somewhat abnormal as well but admits not a STEMI and there again he has a negative troponin.Chest x-ray is negative his alcohol level did come back significantly elevated at more than 250.The patient's denying any chest pain currently. His EKG shows no obvious STEMI. In the differential would also be pericarditis.His repeat EKG shows no STEMI. The patient's been pain-free the duration of his time in the emergency department his history exam are more consistent with acute alcohol intoxication.His troponins negative x2.Patient has follow-up at 7 AM this morning.), d/w patient Departure - Departure Disposition: 01 Home, Self Care Clinical Impression: Chest pain Qualifiers: Chest pain type: unspecified Qualified Code(s): R07.9 - Chest pain, unspecified Alcohol intoxication Qualifiers: Complication of substance-induced condition: uncomplicated Qualified Code(s): F10.920 - Alcohol use, unspecified with intoxication, uncomplicated Condition: Stable Instructions: ED Chest Pain Atypical Unkn Cause, ED Alcohol Intoxication Follow-Up: your, doctor [Other] - 10/23/19 Comments: follow up with medical this morning. Discharge Date/Time: 10/23/19 06:05
[2019-10-22] MEDS ORDERED: NITROGLYCERIN SL 0.4 MG TABLET SL PRN (23:54)
[2019-10-22] MEDS ORDERED: SODIUM CHLORIDE 0.9% 1,000 ML IV ONE (23:54)
[2019-10-22] MEDS ORDERED: ASPIRIN 325 MG TABLET PO STA (23:54)
[2019-10-23 00:21] LABS: BASOPHILS # (AUTO) 0.1 10^3/uL (0.0-0.1); BASOPHILS % (AUTO) 1.6 %; EOSINOPHILS # (AUTO) 0.1 10^3/uL (0.0-0.7); EOSINOPHILS % (AUTO) 2.9 %; LYMPHOCYTES # (AUTO) 1.5 10^3/uL (1.5-3.5); LYMPHOCYTES % (AUTO) 33.3 %; MEAN CORPUSCULAR HEMOGLOBIN 32.3 pg (27.0-31.0); MEAN CORPUSCULAR HGB CONC 34.2 g/dL (32.0-36.0); MEAN CORPUSCULAR VOLUME 94.4 fL (80.0-94.0); MEAN PLATELET VOLUME 10.3 fL (7.4-11.4); MONOCYTES # (AUTO) 0.2 10^3/uL (0.0-1.0); MONOCYTES % (AUTO) 5.4 %; NEUTROPHILS # (AUTO) 2.5 10^3/uL (1.5-6.6); NEUTROPHILS % (AUTO) 56.6 %; PLT - PLATELET COUNT 217 10^3/uL (130-450); RED BLOOD COUNT 4.65 10^6/uL (4.70-6.10); RED CELL DISTRIBUTION WIDTH 12.2 % (12.0-15.0); WHITE BLOOD COUNT 4.4 x10^3/uL (4.8-10.8)
[2019-10-23 00:26] LABS: INR 1.2 (0.8-1.2); PT - PROTHROMBIN TIME 13.1 secs (9.9-12.6)
[2019-10-23 00:33] LABS: PARTIAL THROMBOPLASTIN TIME 31.6 secs (24.9-33.3)
--- NOTE | 2019-10-23 00:34 | XRAY Report ---
Reason: cp Procedure Date: 10/23/2019 Accession Number: [id number] / [id number] Procedure: XR - Chest 1 View X-Ray CPT Code: 16166 Final Report FULL RESULT: EXAM: CHEST RADIOGRAPHY EXAM DATE: 10/23/2019 12:04 AM. CLINICAL HISTORY: Chest pain and shortness of breath. COMPARISON: CHEST 2 VIEW 03/02/2019 4:21 AM. TECHNIQUE: 1 view. FINDINGS: Lungs/Pleura: No focal opacities evident. No pleural effusion. No pneumothorax. Mediastinum: Within exam limitations, the cardiomediastinal contour is normal. Other: None. IMPRESSION: Normal single view chest. RADIA
[2019-10-23 00:35] LABS: ACETAMINOPHEN < 10 ug/mL (10-30); ALBUMIN 4.5 g/dL (3.2-5.5); ALBUMIN/GLOBULIN RATIO 1.5 (1.0-2.2); ALKALINE PHOSPHATASE 65 IU/L (42-121); ALT ALANINE AMINOTRANSFERASE 39 IU/L (10-60); AST ASPARTATE AMINOTRANSFERASE 37 IU/L (10-42); BILIRUBIN,TOTAL 0.9 mg/dL (0.2-1.0); BUN - BLOOD UREA NITROGEN 19 mg/dL (6-20); CALCIUM 8.8 mg/dL (8.5-10.3); CARBON DIOXIDE - CO2 20 mmol/L (21-32); CHLORIDE 104 mmol/L (101-111); CK- CREATINE KINASE 215 IU/L (22-269); CREATININE 1.1 mg/dL (0.6-1.2); GLUCOSE 93 mg/dL (70-100); LIPASE 31 U/L (22-51); SALICYLATE < 6.0 mg/dL; SODIUM 138 mmol/L (135-145); TOTAL PROTEIN 7.6 g/dL (6.7-8.2)
[2019-10-23 00:36] LABS: MUDS CUTOFF CONCENTRATIONS CUTOFF CONC BELOW:
[2019-10-23 00:37] LABS: BILIRUBIN,URINE NEGATIVE (NEGATIVE); GLUCOSE, URINE (UA) NEGATIVE (NEGATIVE); KETONES,URINE (UA) NEGATIVE (NEGATIVE); LEUKOCYTE ESTERASE, URINE NEGATIVE (NEGATIVE); NITRITE,URINE NEGATIVE (NEGATIVE); OCCULT BLOOD,URINE NEGATIVE (NEGATIVE); PROTEIN,URINE NEGATIVE (NEGATIVE); UROBILINOGEN,URINE 0.2 (NORMAL) E.U./dL (NORMAL)
[2019-10-23 00:38] LABS: CLARITY,URINE CLEAR (CLEAR)
[2019-10-23 00:59] LABS: AMPHETAMINE SCREEN,URINE NEGATIVE (NEGATIVE); BENZODIAZEPINES SCREEN, URINE NEGATIVE (NEGATIVE); COCAINE SCREEN URINE NEGATIVE (NEGATIVE); METHADONE SCREEN, URINE NEGATIVE (NEGATIVE); METHAMPHETAMINES SCREEN, URINE NEGATIVE (NEGATIVE); OPIATE SCREEN, URINE NEGATIVE (NEGATIVE); OXYCODONE SCREEN, URINE NEGATIVE (NEGATIVE); PROPOXYPHENE SCREEN, URINE NEGATIVE (NEGATIVE); TRICYCLIC ANTIDEPRESSANT,URINE NEGATIVE (NEGATIVE)
[2019-10-23] MEDS ORDERED: SODIUM CHLORIDE 0.9% 1,000 ML IV ONE (01:28)
[2019-10-23] MEDS ORDERED: IOVERSOL 320 100 ML VIAL IVP ONE ×2 (01:48→02:25)
[2019-10-23] MEDS ORDERED: diphenhydrAMINE INJ 50 MG/ML VIAL IVP STA (02:15)
--- NOTE | 2019-10-23 02:40 | CT Report ---
Reason: cp/sob Procedure Date: 10/23/2019 Accession Number: [id number] / [id number] Procedure: CT - ANGIO CHEST W/WO CPT Code: Final Report FULL RESULT: EXAM: CT CHEST, ABDOMEN AND PELVIS EXAM DATE:10/23/2019 02:23 AM CLINICAL HISTORY: Cp/sob. COMPARISONS: None. TECHNIQUE: Routine helical CT imaging was performed through the chest in the pulmonary arterial phase. IV contrast: 80 mL OPTIRAY 320. Oral contrast No. Reconstructions: Coronal 3-D MIP reconstructions. Coronal and sagittal. In accordance with CT protocol optimization, one or more of the following dose reduction techniques were utilized for this exam: automated exposure control, adjustment of mA and/or KV based on patient size, or use of iterative reconstruction technique. FINDINGS: Pulmonary Arteries: Diagnostic quality: Adequate through the segmental arteries. No evidence for acute or chronic pulmonary emboli. RV/LV is within normal limits. There is no interventricular septal bowing. There is no reflux of contrast material in the IVC. Lungs/Pleura: Clear lungs. No nodules, bronchial thickening, consolidation, or edema. No pleural effusion. No pneumothorax. Heart/mediastinum: The heart and great vessels are normal. No pericardial effusion. No lymphadenopathy or mass. Thoracic Aorta: Unremarkable. Bones: Unremarkable. Visualized Abdomen: Unremarkable. Other: None. IMPRESSION: Normal pulmonary CT angiogram. No pulmonary emboli. RADIA
[2019-10-23 06:13] VITALS: BP 126/69
== END 2019-10-23 06:05 | disposition home or self-care (01) ==
LOC: EDUNIT# → ED 23:43
DX: R07.9 Chest pain, unspecified (principal); F10.129 Alcohol abuse with intoxication, unspecified; Y90.8 Blood alcohol level of 240 mg/100 ml or more
CPT/HCPCS: 36415; 71045; 71275; 80320; 80329; 81003; 82550; 83690; 83880; 84484; 85610; 85730; 93005; 96361; 96374; 99281; 99284; A9270; J1200; Q9967; 80053; 80306; 80307; 81001; 84443; 85025; 87086

== ENCOUNTER 2020-02-26 08:45 | Observation (INO) | payer OTHER ==
[2020-02-26 09:14] LABS: BASOPHILS # (AUTO) 0.1 10^3/uL (0.0-0.1); BASOPHILS % (AUTO) 1.6 %; EOSINOPHILS # (AUTO) 0.2 10^3/uL (0.0-0.7); EOSINOPHILS % (AUTO) 5.5 %; HGB - HEMOGLOBIN 15.3 g/dL (14.0-18.0); LYMPHOCYTES # (AUTO) 0.8 10^3/uL (1.5-3.5); LYMPHOCYTES % (AUTO) 22.5 %; MEAN CORPUSCULAR HEMOGLOBIN 34.2 pg (27.0-31.0); MEAN CORPUSCULAR HGB CONC 35.7 g/dL (32.0-36.0); MEAN CORPUSCULAR VOLUME 95.7 fL (80.0-94.0); MEAN PLATELET VOLUME 10.1 fL (7.4-11.4); MONOCYTES # (AUTO) 0.4 10^3/uL (0.0-1.0); MONOCYTES % (AUTO) 10.1 %; NEUTROPHILS # (AUTO) 2.2 10^3/uL (1.5-6.6); PLT - PLATELET COUNT 195 10^3/uL (130-450); RED BLOOD COUNT 4.47 10^6/uL (4.70-6.10); RED CELL DISTRIBUTION WIDTH 11.9 % (12.0-15.0); WHITE BLOOD COUNT 3.7 x10^3/uL (4.8-10.8)
[2020-02-26] MEDS ORDERED: FAMOTIDINE 20 MG/2 ML SYRINGE IVP STA (09:20)
[2020-02-26] MEDS ORDERED: MAG HYDROX/AL HYDROX/SIMETH 30 ML UDC PO STA (09:20)
[2020-02-26] MEDS ORDERED: LIDOCAINE VISCOUS 2% 15 ML UDC MM STA (09:20)
[2020-02-26] MEDS ORDERED: MORPHINE 2 MG/ML CARPUJECT IVP STA ×2 (09:22→11:41)
--- NOTE | 2020-02-26 09:25 | ED Physician Documentation ---
PD HPI ABD PAIN - Stated complaint Stated Complaint: SOA AND BACK PX - Chief complaint Chief Complaint: Cardiac - History obtained from History obtained from: Patient - History of Present Illness Timing - onset: How many days ago (has had some upper abd to back pain intermittent the past week, much worse overnight into this morning. Pain with eating.) Timing - duration: Days (worse pain for a day. Upper abd radiating into chest and back.) Timing - details: Gradual onset, Still present Quality: Aching, Stabbing, Pain Location: RUQ, Epigastric Radiation: Chest, Upper back Improved by: No: Meds (tried antacids) Worsened by: Eating Associated symptoms: Nausea. No: Fever, Vomiting, Diarrhea, Dizzy Similar symptoms before: Has not had sx before Review of Systems Constitutional: denies: Fever, Chills Nose: denies: Rhinorrhea / runny nose, Congestion Throat: denies: Sore throat Cardiac: denies: Palpitations Respiratory: denies: Dyspnea, Cough GI: reports: Abdominal Pain, Nausea. denies: Vomiting, Diarrhea, Bloody / black stool : denies: Dysuria, Frequency Musculoskeletal: denies: Neck pain, Back pain Neurologic: reports: Generalized weakness. denies: Focal weakness, Numbness, Near syncope PD PAST MEDICAL HISTORY - Past Medical History Past Medical History: Yes Cardiovascular: None, Other Respiratory: Asthma Neuro: None Endocrine/Autoimmune: None GI: None : None HEENT: None Psych: None Musculoskeletal: Other Derm: None Other Past Medical History: stress test dopne showed Left heart hypertrophy - Past Surgical History Past Surgical History: Yes - Present Medications Home Medications: Ambulatory Orders Medication Instructions Recorded Confirmed methocarbamoL [Methocarbamol] 500 mg PO TID PRN #21 tablet 08/23/19 10/23/19 Pantoprazole [Protonix] 40 mg PO DAILY 7 Days #7 tablet 01/10/20 - Allergies Allergies/Adverse Reactions: Allergies Allergy/AdvReac Type Severity Reaction Status Date / Time ioversol Allergy Intermediate Itching/Snorting Verified 10/24/19 17:19 through nose - Social History Does the pt smoke?: No Smoking Status: Never smoker Does the pt drink ETOH?: No Does the pt have substance abuse?: No - Immunizations Immunizations are current?: Yes - POLST Patient has POLST: No PD ED PE NORMAL - Vitals Vital signs reviewed: Yes - General General: Alert and oriented X 3, Well developed/nourished, Other (appears in pain ) - HEENT HEENT: Moist mucous membranes, Pharynx benign - Neck Neck: Supple, no meningeal sign, No adenopathy - Cardiac Cardiac: RRR, No murmur - Respiratory Respiratory: Clear bilaterally - Abdomen Abdomen: Normal bowel sounds, Soft, Non distended, No organomegaly, Other (very tender to even light tough, has local guarding and percussion tenderness. Lower abd not tender. ) - Back Back: No CVA TTP - Derm Derm: Normal color, Warm and dry - Extremities Extremities: Normal ROM s pain, No edema, No calf tenderness / cord - Neuro Neuro: Alert and oriented X 3, No motor deficit, Normal speech Results - Vitals Vitals: Vital Signs - 24 hr 02/26/20 02/26/20 02/26/20 08:56 09:03 09:32 Temperature 36.3 C L Heart Rate 95 80 Respiratory 15 16 Rate Blood Pressure 157/94 H 137/85 H Blood Pressure 157/94 H [Right] O2 Saturation 97 98 02/26/20 02/26/20 02/26/20 10:02 10:30 11:00 Temperature Heart Rate 80 84 82 Respiratory 13 17 16 Rate Blood Pressure 148/84 H 142/59 H 151/77 H Blood Pressure [Right] O2 Saturation 94 95 94 02/26/20 02/26/20 02/26/20 11:30 12:00 12:30 Temperature Heart Rate 80 83 90 Respiratory 18 19 20 Rate Blood Pressure 170/74 H 184/88 H 173/103 H Blood Pressure [Right] O2 Saturation 95 94 100 02/26/20 13:00 Temperature Heart Rate 80 Respiratory 18 Rate Blood Pressure 181/96 H Blood Pressure [Right] O2 Saturation 96 Oxygen O2 Source Room air - Labs Labs: Laboratory Tests 02/26/20 02/26/20 02/26/20 09:10 09:10 09:10 WBC 3.7 L RBC 4.47 L Hgb 15.3 Hct 42.8 MCV 95.7 H MCH 34.2 H MCHC 35.7 RDW 11.9 L Plt Count 195 MPV 10.1 Neut # (Auto) 2.2 Lymph # (Auto) 0.8 L [place] # (Auto) 0.4 Eos # (Auto) 0.2 Baso # (Auto) 0.1 Absolute Nucleated RBC 0.00 Nucleated RBC % 0.0 Sodium 139 Potassium 3.9 Chloride 103 Carbon Dioxide 25 Anion Gap 11.0 BUN 9 Creatinine 1.0 Estimated GFR (MDRD) 111 Glucose 103 H Calcium 9.1 Magnesium Total Bilirubin 0.9 AST 93 H ALT 72 H Alkaline Phosphatase 71 Troponin I High Sens 5.9 C-Reactive Protein B-Natriuretic Peptide Total Protein 8.0 Albumin 4.8 Globulin 3.2 Albumin/Globulin Ratio 1.5 Lipase 95 H Ethyl Alcohol 02/26/20 02/26/20 02/26/20 09:10 09:10 09:10 WBC RBC Hgb Hct MCV MCH MCHC RDW Plt Count MPV Neut # (Auto) Lymph # (Auto) [place] # (Auto) Eos # (Auto) Baso # (Auto) Absolute Nucleated RBC Nucleated RBC % Sodium Potassium Chloride Carbon Dioxide Anion Gap BUN Creatinine Estimated GFR (MDRD) Glucose Calcium Magnesium 2.2 Total Bilirubin AST ALT Alkaline Phosphatase Troponin I High Sens C-Reactive Protein 1.5 H B-Natriuretic Peptide < 5 L Total Protein Albumin Globulin Albumin/Globulin Ratio Lipase Ethyl Alcohol 196.7 - Rads (name of study) U/S upper abd Radiology: Prelim report reviewed (Without gallstones. Cysts common bile duct at 5 mm. No obvious intraductal obstruction. Pancreas poorly seen.), See rad report PD MEDICAL DECISION MAKING - ED course Complexity details: reviewed results (c/w pancreatitis, presume alcohol related. ), re-evaluated patient (Till having considerable tenderness to palpation. He is feeling less pain just at rest. Sips of water do increase some pain.), considered differential, d/w patient Departure - Departure Disposition: ED Place in Observation Clinical Impression: Upper abdominal pain Acute pancreatitis Qualifiers: Pancreatitis type: alcohol induced Acute pancreatitis complication: no infection or necrosis Qualified Code(s): K85.20 - Alcohol induced acute pancreatitis without necrosis or infection Condition: Stable Record reviewed to determine appropriate education?: Yes Discharge Date/Time: 02/26/20 14:51
[2020-02-26 09:28] LABS: ALBUMIN 4.8 g/dL (3.2-5.5); ALBUMIN/GLOBULIN RATIO 1.5 (1.0-2.2); BILIRUBIN,TOTAL 0.9 mg/dL (0.2-1.0); CALCIUM 9.1 mg/dL (8.5-10.3)
--- NOTE | 2020-02-26 09:37 | XRAY Report ---
PROCEDURE: Chest 1 View X-Ray INDICATIONS: Chest pain TECHNIQUE: One view of the chest was acquired. COMPARISON: 10/23/[address] FINDINGS: Surgical changes and devices: None. Lungs and pleura: No pleural effusions or pneumothorax. Lungs are clear. Mediastinum: Mediastinal contours appear normal. Heart size is normal. Bones and chest wall: No suspicious bony lesions. Overlying soft tissues appear unremarkable. IMPRESSION: Normal examination, source of pain is not seen. Reviewed by: Andrew Ivey MD on 02/26/2020 9:35 AM PDT Approved by: Andrew Ivey MD on 02/26/2020 9:35 AM PDT Station ID: [id number]
[2020-02-26 09:42] LABS: MAGNESIUM 2.2 mg/dL (1.7-2.8)
--- NOTE | 2020-02-26 11:15 | Ultrasound Report ---
PROCEDURE: Abdomen Limited INDICATIONS: upper abd/RUQ abd pain and tender TECHNIQUE: Real-time focused scanning was performed of the abdomen, with image documentation. COMPARISON: Prior CT angiogram chest 10/23/2019 FINDINGS: The liver is normal in craniocaudad length of 16.1 cm but is diffusely hyperechoic consist ent with fatty infiltration. The gallbladder appears normal. The bile duct distally measures 5.1 mm, normal. It is slightly more prominent proximally. The right kidney is free of hydronephrosis or nephr olithiasis. IMPRESSION: Hyperechoic liver echotexture most likely representing diffuse fatty infiltration but no evidence of biliary obstruction or acute cholecystitis is found. No right-sided urinary tract abnormality is susp ected either. Reviewed by: Andrew Ivey MD on 02/26/2020 11:14 AM PDT Approved by: Andrew Ivey MD on 02/26/2020 11:14 AM PDT Station ID: [id number]
[2020-02-26] MEDS ORDERED: KETOROLAC 30 MG/ML VIAL IVP STA (13:07)
[2020-02-26] MEDS ORDERED: ONDANSETRON ODT 4 MG TABLET TL PRN (13:18)
[2020-02-26] MEDS ORDERED: PROMETHAZINE 25 MG/1 ML VIAL IM PRN (13:18)
[2020-02-26] MEDS ORDERED: PROCHLORPERAZINE 10 MG/2 ML VIAL IVP PRN (13:18)
[2020-02-26] MEDS ORDERED: ONDANSETRON 4 MG/2 ML VIAL IVP PRN (13:18)
--- NOTE | 2020-02-26 13:31 | HISTORY & PHYSICAL EXAMINATION ---
Chief Complaint - Chief Complaint Chief Complaint: nausea and xyphoid pain radiating to back History of Present Illness - Admitted From Admitted From:: Home/ER - History Obtained From Records Reviewed: [facility] History obtained from: patient and Dr. 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 Over the last few visits this year it has been attributed to alcohol abuse. With this episode of care he has been complaining of substernal pain for a week, located in the subxiphoid area and it radiates to his back. He cannot sleep because of the continued pain. And he is very nauseated and has been able to eat very much. His last alcohol use was last night. He said that the pain was just unbearable so he started drinking even more to try and dull it. His alcohol level in December was 245, and today it is 196.No diarrhea. Pos itive flatus. Urine is not brown. He was evaluated by Dr. Rubin who found him to be afebrile, a pulse in the 80s, and hypertensive in the 170s over 103. He is oxygenating well. He has a moderate to severe tender abdomen. Positive bowel sounds. White cell count is low at 3.7. Hemoglobin is stable at 15.3. INR is 1.1. CMP shows an AST of 93, ALT 72. C-reactive protein 1.5, lipase 95. Calcium and magnesium are normal. His ultrasound of the abdomen shows a hyperechoic liver echotexture representing diffuse fatty liver infiltration but no biliary obstruction or acute cholecystitis. Chest x-ray shows a normal examination. EKG has sinus rhythm with nonspecific ST-T wave changes. EKG looks unchanged from October 23, 2019. Patient is felt to have pancreatitis and abdominal pain from alcohol abuse. He is now placed in observation to control his pain, nausea. We did call [facility] since he is active duty. They state that there are no beds available. 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 Mom is 43 years old with diabetes, heart attack at age 30. One brother is completely healthy without high blood pressure, diabetes, cancer, heart attack, stroke. 2 children are completely healthy. Living arrangement: At home Living Situation: With spouse/s.o. Social History Notes: He is from [facility]. Signed up to be in the [employer] [place] been his duty station for the last 3 years. 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 Never smoked. Started drinking at the age of 21. He feels like he does not drink very much and only drinks 2-3 a day. From [facility]. Lives with his fiance and baby daughter. His son is from a previous relationship. - Substance History Abuse: Recurrent use of substance despite neg consequences: Alcohol Abuse Issues: Other (Abdominal pain) - POLST Patient has POLST: No POLST Status: Full Code Meds/Allgy - Home Medications Home Medications: Ambulatory Orders Medication Instructions Recorded Confirmed methocarbamoL [Methocarbamol] 500 mg PO TID PRN #21 tablet 08/23/19 10/23/19 Pantoprazole [Protonix] 40 mg PO DAILY 7 Days #7 tablet 01/10/20 - Allergies Allergies/Adverse Reactions: Allergies Allergy/AdvReac Type Severity Reaction Status Date / Time ioversol Allergy Intermediate Itching/Snorting Verified 10/24/19 17:19 through nose Review of Systems - Constitutional Constitutional: denies: Fatigue, Fever, Chills, Malaise, Weakness, Poor appetite - Eyes Eyes: denies: Pain, Irritation, Amaurosis, Blurred vision, Field loss, Vision loss, Dipolpia - Ears, Nose & Throat Ears, Nose & Throat: denies: Ear pain, Vertigo, Nasal obstruction, Nasal congestion, Postnasal drainage, Sore throat - Cardiovascular Cariovascular: denies: Irregular heart rate, Palpitations, Chest pain, Edema, Exertional dyspnea, Decr. exercise tolerance - Respiratory Respiratory: denies: Cough, Sputum production, Wheezing, Hemoptysis, Orthopnea - Gastrointestinal Gastrointestinal: reports: Abdominal pain, Abdominal distention, Nausea, Vom iting, Reflux/heartburn, Bloating. denies: Diarrhea, Change in bowel habits, Black stools, Bloody stools, Bile emesis, Neo blood emesis, Coffee grounds emesis, Poor appetite - Genitourinary Genitourinary: denies: Dysuria, Frequency, Urgency, Hematuria, Flank pain, Nocturia - Musculoskeletal Musculoskeletal: reports: Joint pain (Shoulder pain that needs rotator cuff). denies: Muscle pain, Back pain, Muscle aches - Integumentary Integumentary: denies: Rash, Pruritis, Lesions, Dryness - Neurological Neurological: denies: General weakness, Focal weakness, Headache, Dizziness, Memory problems, Pre-existing deficit - Psychiatric Psychiatric: denies: Depression, Anxiety, Suicidal Prior Level of Functionality: Active duty [employer], independent with activities of daily living, no use of durable medical equipment. Exam - Vital Signs Reviewed Vital Signs: Yes Vital Signs: Vital Signs x48h Temp Pulse Resp BP BP Pulse Ox 02/26/20 13:00 80 18 181/96 H 96 02/26/20 12:30 90 20 173/103 H 100 02/26/20 12:00 83 19 184/88 H 94 02/26/20 11:30 80 18 170/74 H 95 02/26/20 11:00 82 16 151/77 H 94 02/26/20 10:30 84 17 142/59 H 95 02/26/20 10:02 80 13 148/84 H 94 02/26/20 09:32 80 16 137/85 H 98 02/26/20 09:03 157/94 H 02/26/20 08:56 36.3 C L 95 15 157/94 H 97 - Physical Exam General Appearance: positive: No acute distress, Alert, Other (5 foot 11 inch black male who weighs 111.13 kg.) Eyes Bilateral: positive: PERRL, EOMI ENT: positive: Pharynx nml Neck: positive: No JVD. negative: Stiff neck Respiratory: negative: Chest non-tender, Wheezes, Rales, Rhonchi Cardiovascular: positive: Regular rate & rhythm, No murmur. negative: Gallop/S4, Friction rub Peripheral Pulses: positive: 1+ Abdomen: positive: Other (Moderate tenderness epigastrium into the left upper quadrant. He feels like the pain goes straight through to his back. No rebound or guarding. Normal bowel sounds. No fluid wave.) Skin: positive: Warm, Dry Extremities: positive: Non-tender, No pedal edema Neurologic/Psychiatric: positive: Oriented x3, CN's nml (2-12), Motor nml, Sensation nml Conclusion/Plan - Problem List (1) Acute pancreatitis Conclusion/Plan: At this time [place]'s criteria for pancreatitis shows him to be without the elevated white cell count greater than 16,000, without any age greater than 55, without a glucose greater than 200, without an AST greater than 250, without an LDH of 350. His risk is relatively mild. Plan: Observation status IV fluids for hydration Pain and nausea medications Recalculate [place]'s criteria if he is here greater than 24 hours Qualifiers: Pancreatitis type: alcohol induced Acute pancreatitis complication: no infection or necrosis Qualified Code(s): K85.20 - Alcohol induced acute pancreatitis without necrosis or infection (2) Alcohol intoxication Conclusion/Plan: Complication is that of pancreatitis. No history of active alcohol withdrawal. Plan: Banana bag Careful observation to make sure he does not go through withdrawal Social work consult. We will also ask social work from the [facility] to be notified Qualifiers: Complication of substance-induced condition: with unspecified complication Qualified Code(s): F10.929 - Alcohol use, unspecified with intoxication, unspec ified - Lab Results Lab results reviewed: Yes Fish Bones: 02/26/20 09:10 02/26/20 09:10 - Diagnostic Imaging Results Diagnostic Imaging Results: positive: Final report reviewed Diagnostic Imaging Results Comments: Fatty liver, no biliary stones. - EKG Results EKG Interpreted Independently: No EKG Comparison: Unchanged from prior EKG Core Measures - Anticipated LOS I expect patient to be DC'd or transferred within 96 hours.: Yes - DVT/VTE - Prophylaxis VTE/DVT Device ordered at admit?: Yes
[2020-02-26] MEDS ORDERED: SODIUM CHLORIDE 0.9% 1,000 ML IV SCH (14:00)
[2020-02-26] MEDS: MORPHINE 2 MG/ML CARPUJECT IVP PRN (15:47)
[2020-02-26] MEDS: PANTOPRAZOLE 40 MG TABLET PO SCH (15:48)
[2020-02-26] MEDS: SODIUM CHLORIDE FLUSH 0.9% 10 ML SYRINGE IVP SCH (15:49)
[2020-02-26] MEDS: SODIUM CHLORIDE 0.9% 1,000 ML IV SCH (15:56)
[2020-02-26] MEDS ORDERED: diphenhydrAMINE INJ 50 MG/ML VIAL IVP STA (16:05)
[2020-02-26] MEDS ORDERED: methylPREDNISolone SUCCINATE 40 MG/ML VIAL IVP STA (16:05)
[2020-02-26] MEDS: methylPREDNISolone SUCCINATE 40 MG/ML VIAL IVP SCH (17:18)
[2020-02-27] MEDS: SODIUM CHLORIDE FLUSH 0.9% 10 ML SYRINGE IVP SCH ×3 (00:24→18:59)
[2020-02-27] MEDS: methylPREDNISolone SUCCINATE 40 MG/ML VIAL IVP SCH ×4 (00:24→21:55)
[2020-02-27] MEDS: SODIUM CHLORIDE 0.9% 1,000 ML IV SCH ×3 (00:48→19:21)
[2020-02-27 05:24] LABS: BASOPHILS % (AUTO) 0.2 %; EOSINOPHILS % (AUTO) 1.9 %; HGB - HEMOGLOBIN 15.1 g/dL (14.0-18.0); LYMPHOCYTES % (AUTO) 6.9 %; MEAN CORPUSCULAR HEMOGLOBIN 32.9 pg (27.0-31.0); MEAN CORPUSCULAR HGB CONC 34.2 g/dL (32.0-36.0); MEAN CORPUSCULAR VOLUME 96.1 fL (80.0-94.0); MEAN PLATELET VOLUME 10.4 fL (7.4-11.4); MONOCYTES % (AUTO) 1.1 %; NEUTROPHILS % (AUTO) 89.7 %; PLT - PLATELET COUNT 215 10^3/uL (130-450); RED BLOOD COUNT 4.59 10^6/uL (4.70-6.10); RED CELL DISTRIBUTION WIDTH 11.4 % (12.0-15.0); WHITE BLOOD COUNT 4.6 x10^3/uL (4.8-10.8)
[2020-02-27 05:35] LABS: ABNORMAL LYMPHS % (MANUAL) 0 %; BAND NEUTROPHILS % (MANUAL) 0 %
[2020-02-27 05:39] LABS: ALBUMIN 4.7 g/dL (3.2-5.5); ALBUMIN/GLOBULIN RATIO 1.4 (1.0-2.2); BILIRUBIN,TOTAL 2.1 mg/dL (0.2-1.0); CALCIUM 9.5 mg/dL (8.5-10.3); CREATININE 0.9 mg/dL (0.6-1.2)
[2020-02-27 05:47] LABS: LYMPHOCYTES # (MANUAL) 0.3 10^3/uL (1.5-3.5); LYMPHOCYTES % (MANUAL) 6 %
[2020-02-27 05:48] LABS: DIFFERENTIAL COMMENT MANUAL DIFFERENTIAL; PLATELET ESTIMATE, MANUAL NORMAL (130-450,000) (NORMAL); PLATELET MORPHOLOGY NORMAL APPEARANCE (NORMAL); RBC MORPHOLOGY (MULTIPLE) NORMAL APPEARANCE (NORMAL)
[2020-02-27] MEDS ORDERED: diphenhydrAMINE INJ 50 MG/ML VIAL IVP ONE (06:00)
[2020-02-27] MEDS: PANTOPRAZOLE 40 MG TABLET PO SCH (06:56)
[2020-02-27] MEDS ORDERED: IOVERSOL 320 100 ML VIAL IVP ONE ×2 (07:00→17:18)
[2020-02-27] MEDS: MORPHINE 2 MG/ML CARPUJECT IVP PRN ×2 (08:02→13:51)
[2020-02-27] MEDS: ENOXAPARIN 40 MG/0.4 ML SYRINGE SUBQ SCH (08:03)
[2020-02-27] MEDS ORDERED: MULTIVITAMIN 10 ML, FOLIC ACID INJ 1 MG, THIAMINE INJ 100 MG, MAGNESIUM SULFATE 2 GM in... IV SCH ×5 (09:00)
--- NOTE | 2020-02-27 10:50 | CT Report ---
PROCEDURE: ABDOMEN W INDICATIONS: epigastric pain, sever CONTRAST: IV CONTRAST: Optiray 320 ml: 100 PO CONTRAST: *NO PO CONTRAST TECHNIQUE: After the administration of oral and intravenous contrast, 5 mm thick sections acquired from the diap hragms to the iliac crests. 5 mm thick coronal and sagittal reformats were acquired. For radiation dose reduction, the following was used: automated exposure control, adjustment of mA and/or kV accor ding to patient size. Due to prior contrast reaction, the patient was given a 13 hour premedication o f Solu-Medrol and Benadryl per protocol. Contrast was administered without complication. COMPARISON: Ultrasound 02/26/2020, CT of the chest 10/23/2019 FINDINGS: Image quality: Excellent. Lung bases: Lung bases are clear. Heart size is normal. Tiny posterior medial right fat-containing diaphragmatic hernia. Solid organs: Mild hepatomegaly and moderate hepatic steatosis. Further focal fat infiltration adjac ent to falciform ligament. The spleen is normal. Gallbladder is unremarkable Biliary system is non d ilated. Pancreas enhances normally. No adrenal nodules. Kidneys are normal in size, without hydron ephrosis. Peritoneum and bowel: Contrast enhanced bowel loops appear normal in caliber. Normal appendix. No f ree fluid or air in the upper abdomen.. Nodes and vessels: No retroperitoneal or mesenteric adenopathy by size criteria. Aorta and inferior vena cava are normal in size. Bones: No suspicious bony lesions. No vertebral body compression fractures. Miscellaneous: No ventral hernias. IMPRESSION: 1. Moderate hepatic steatosis. 2. No CT evidence of acute pancreatitis, although mild pancreatitis can be occult by CT. 3. Normal appendix. Reviewed by: Rosaura Yoder MD on 02/27/2020 10:49 AM PDT Approved by: Rosaura Yoder MD on 02/27/2020 10:49 AM PDT Station ID: [id number]
[2020-02-27] MEDS: SODIUM CHLORIDE FLUSH 0.9% 10 ML SYRINGE IVP PRN (13:16)
--- NOTE | 2020-02-27 17:10 | PROVIDER PROGRESS NOTE ---
Subjective - Prog Note Date Prog Note Date: 02/27/20 Prog Note Time: 17:10 - Subjective Pt reports feeling: Improved Subjective: Although he has less pain, it is still present. We advanced his diet from clear liquids in the morning to regular diet at lunch. The lunchtime meal is what caused him to have increased pain to a 6 out of a 10 this evening. No emesis. No diarrhea. No fever. Current Medications - Current Medications Current Medications: Active Medications Enoxaparin Sodium (Lovenox) 40 mg SUBQ DAILY [facility] Last Admin: 02/27/20 08:03 Dose: 40 mg Documented by: Multivitamins 10 ml/ Folic Acid 1 mg/ Thiamine HCl 100 mg / Magnesium Sulfate 2 gm/Sodium Chloride 1,015.2 mls @ 125 mls/hr IV DAILY [facility] Last Admin: 02/27/20 09:53 Dose: 125 mls/hr Documented by: Sodium Chloride (Normal Saline 0.9%) 1,000 mls @ 100 mls/hr IV .Q10H [facility] Last Admin: 02/27/20 10:39 Dose: Not Given Documented by: Methylprednisolone (Solu-Medrol (40mg Vial)) 40 mg IVP TID [facility] Last Admin: 02/27/20 13:16 Dose: 40 mg Documented by: Morphine Sulfate (Morphine (Carpuject)) 2 mg IVP Q2HR PRN PRN Reason: Pain 8 to 10 Last Admin: 02/27/20 13:51 Dose: 2 mg Documented by: Ondansetron HCl (Zofran Odt) 4 mg TL Q6HR PRN PRN Reason: Nausea / Vomiting Ondansetron HCl (Zofran Inj) 4 mg IVP Q6HR PRN PRN Reason: Nausea / Vomiting Last Admin: 02/26/20 19:37 Dose: 4 mg Documented by: Pantoprazole Sodium (Protonix) 40 mg PO QDAC [facility] Last Admin: 02/27/20 06:56 Dose: Not Given Documented by: Prochlorperazine Edisylate (Compazine Inj) 10 mg IVP Q6HR PRN PRN Reason: Nausea / Vomiting Promethazine HCl (Phenergan Inj) 25 mg IM Q6HR PRN PRN Reason: Nausea / Vomiting Sodium Chloride (Normal Saline Flush 0.9%) 10 ml IVP PRN PRN PRN Reason: NEEDED PER PROVIDER ORDERS Last Admin: 02/27/20 13:16 Dose: 10 ml Documented by: Sodium Chloride (Normal Saline Flush 0.9%) 10 ml IVP 0100,0900,1700 [place] Last Admin: 02/27/20 08:02 Dose: 10 ml Documented by: Objective - Vital Signs/Intake & Output Reviewed Vital Signs: Yes Vital Signs: Vital Signs x48h Temp Pulse Resp BP Pulse Ox 02/27/20 16:32 36.6 C 70 18 154/83 H 96 02/27/20 12:35 36.8 C 85 18 141/80 H 97 Intake & Output: Intake & Output 02/24/20 02/25/20 02/26/20 02/27/20 23:59 23:59 23:59 23:59 Intake Total 2199.667 Output Total 850 Balance 1349.667 - Objective General Appearance: positive: No acute distress, Alert Eyes Bilateral: positive: PERRL ENT: positive: No signs of dehydration Neck: positive: No JVD Respiratory: positive: Chest non-tender. negative: Wheezes, Rales, Rhonchi Cardiovascular: positive: Regular rate & rhythm. negative: Gallop/S4, Friction rub Abdomen: positive: Nml bowel sounds, No distention, Tenderness (Epigastrium, left upper quadrant. Mild in comparison to last night.). negative: Guarding, Rebound Skin: positive: Warm, Dry Extremities: positive: Non-tender, Full ROM, No pedal edema Neurologic/Psychiatric: positive: Oriented x3, CN's nml (2-12), Motor nml, Sensation nml - Lab Results Fish Bones: 02/27/20 05:13 02/27/20 05:13 Other Labs: Lab Results x24hrs 02/27/20 02/27/20 Range/Units 05:13 05:13 WBC 4.6 L (4.8-10.8) x10^3/uL RBC 4.59 L (4.70-6.10) 10^6/uL Hgb 15.1 (14.0-18.0) g/dL Hct 44.1 (42.0-52.0) % MCV 96.1 H (80.0-94.0) fL MCH 32.9 H (27.0-31.0) pg MCHC 34.2 (32.0-36.0) g/dL RDW 11.4 L (12.0-15.0) % Plt Count 215 (130-450) 10^3/uL MPV 10.4 (7.4-11.4) fL Neut # (Auto) Not Reportable Lymph # (Auto) Not Reportable [place] # (Auto) Not Reportable Eos # (Auto) Not Reportable Baso # (Auto) Not Reportable Absolute Nucleated RBC Not Reportable Total Counted 100 Band Neuts % (Manual) 0 (0 - 10) % Abnorm Lymph % (Manual) 0 % Nucleated RBC % Not Reportable Neutrophils # (Manual) 4.3 (1.5-6.6) 10^3/uL Lymphocytes # (Manual) 0.3 L (1.5-3.5) 10^3/uL Monocytes # (Manual) 0.0 (0.0-1.0) 10^3/uL Eosinophils # (Manual) 0.0 (0-0.7) 10^3/uL Basophils # (Manual) 0.0 (0-0.1) 10^3/uL Differential Comment MANUAL DIFFERENTIAL WBC Morphology NORMAL APPEARANCE (NORMAL) Platelet Estimate NORMAL (130-450,000) (NORMAL) Platelet Morphology NORMAL APPEARANCE (NORMAL) RBC Morph Micro Appear NORMAL APPEARANCE (NORMAL) Sodium 133 L (135-145) mmol/L Potassium 4.6 (3.5-5.0) mmol/L Chloride 101 (101-111) mmol/L Carbon Dioxide 21 (21-32) mmol/L Anion Gap 11.0 (6-13) BUN 15 (6-20) mg/dL Creatinine 0.9 (0.6-1.2) mg/dL Estimated GFR (MDRD) 126 (>89) Glucose 123 H (70-100) mg/dL Calcium 9.5 (8.5-10.3) mg/dL Total Bilirubin 2.1 H (0.2-1.0) mg/dL AST 67 H (10-42) IU/L ALT 68 H (10-60) IU/L Alkaline Phosphatase 71 (42-121) IU/L Total Protein 8.0 (6.7-8.2) g/dL Albumin 4.7 (3.2-5.5) g/dL Globulin 3.3 (2.1-4.2) g/dL Albumin/Globulin Ratio 1.4 (1.0-2.2) Amylase 85 (28-100) U/L Lipase 73 H (22-51) U/L ABX Reporting Has patient been on IV antibiotics over the past 48 hours?: No Assessment/Plan - Problem List (1) Acute pancreatitis Impression: On admission, [place]'s criteria for pancreatitis shows him to be without the elevated white cell count greater than 16,000, without any age greater than 55, without a glucose greater than 200, without an AST greater than 250, without an LDH of 350. His risk is relatively mild. At 24 hours, nothing has changed. His pain is less but still a 6/10 after eating his lunch of soup. No emesis. CT of the abdomen was done to evaluate and so far no severe inflammation. No phlegmon, no abscess. Plan: Observation status to continue since he is IV fluids for hydration Pain and nausea medications, add po oxycodone instead of IV morphine I recommended that he also get an EGD in the outpatient setting to make sure were not missing a gastritis as the cause of his upper abdominal pain. Qualifiers: Pancreatitis type: alcohol induced Acute pancreatitis complication: no infection or necrosis Qualified Code(s): K85.20 - Alcohol induced acute pancreatitis without necrosis or infection (2) Alcohol intoxication Conclusion/Plan: Complication is that of pancreatitis. No history of active alcohol withdrawal.In 24 hours, he has done well. No tachycardia, no agitation, no tremulousness. Plan: Banana bag Intravenous can be changed to p.o. vitamins Careful observation to make sure he does not go through withdrawal Social work consult has been done. They have spoken to case management at the [facility] and they will take it from there. Qualifiers: Complication of substance-induced condition: with unspecified complication Qualified Code(s): F10.929 - Alcohol use, unspecified with intoxication, unspecified Qualifiers: Qualified Code(s): K85.20 - Alcohol induced acute pancreatitis without necrosis or infection
--- NOTE | 2020-02-27 17:17 | PHARMACY PROGRESS NOTE ---
- Best Possible Medication History Admit Date and Time: 02/26/20 1318 Processed by: Pharmacy Medication History completed: Yes Patient Interview: Completed (PATIENT HAS FILLED BUT NOT TAKEN MEDICATIONS) Secondary Source(s): Pharmacy records As the person ultimately responsible for medication therapy, providers are able to order a medication from an existing home medication list in [facility] via the "Reconcile Routine" prior to Confirmation of that medication by customer support representative. Such practice is discouraged except when the physician, in their clinical judgment, deems that a medical need exists for a medication without regard to previous use.
[2020-02-27] MEDS: oxyCODONE 5 MG TABLET PO PRN ×2 (18:16→22:54)
[2020-02-28] MEDS: SODIUM CHLORIDE FLUSH 0.9% 10 ML SYRINGE IVP SCH ×2 (00:44→09:04)
[2020-02-28] MEDS: SODIUM CHLORIDE FLUSH 0.9% 10 ML SYRINGE IVP PRN (00:45)
[2020-02-28] MEDS: MORPHINE 2 MG/ML CARPUJECT IVP PRN ×2 (00:54→09:02)
[2020-02-28] MEDS: SODIUM CHLORIDE 0.9% 1,000 ML IV SCH (06:56)
[2020-02-28] MEDS: PANTOPRAZOLE 40 MG TABLET PO SCH (06:56)
[2020-02-28] MEDS: methylPREDNISolone SUCCINATE 40 MG/ML VIAL IVP SCH (06:57)
[2020-02-28 07:32] LABS: BASOPHILS % (AUTO) 0.1 %; LYMPHOCYTES # (AUTO) 0.6 10^3/uL (1.5-3.5); LYMPHOCYTES % (AUTO) 5.7 %; MEAN CORPUSCULAR HEMOGLOBIN 34.2 pg (27.0-31.0); MEAN CORPUSCULAR HGB CONC 35.3 g/dL (32.0-36.0); MEAN CORPUSCULAR VOLUME 96.8 fL (80.0-94.0); MEAN PLATELET VOLUME 10.8 fL (7.4-11.4); MONOCYTES # (AUTO) 0.6 10^3/uL (0.0-1.0); MONOCYTES % (AUTO) 5.8 %; NEUTROPHILS # (AUTO) 8.5 10^3/uL (1.5-6.6); NEUTROPHILS % (AUTO) 87.9 %; PLT - PLATELET COUNT 220 10^3/uL (130-450); RED BLOOD COUNT 4.39 10^6/uL (4.70-6.10); RED CELL DISTRIBUTION WIDTH 11.5 % (12.0-15.0); WHITE BLOOD COUNT 9.6 x10^3/uL (4.8-10.8)
[2020-02-28 08:10] LABS: ALBUMIN 4.4 g/dL (3.2-5.5); ALBUMIN/GLOBULIN RATIO 1.4 (1.0-2.2); CREATININE 0.9 mg/dL (0.6-1.2); MAGNESIUM 2.5 mg/dL (1.7-2.8); PHOSPHORUS 3.4 mg/dL (2.5-4.6); TOTAL PROTEIN 7.6 g/dL (6.7-8.2)
[2020-02-28] MEDS ORDERED: THIAMINE 100 MG TABLET PO SCH (09:00)
[2020-02-28] MEDS ORDERED: FOLIC ACID 1 MG TABLET PO SCH (09:00)
[2020-02-28] MEDS: oxyCODONE 5 MG TABLET PO PRN (09:03)
[2020-02-28] MEDS: ENOXAPARIN 40 MG/0.4 ML SYRINGE SUBQ SCH (09:04)
--- NOTE | 2020-02-28 09:15 | Discharge Plan ---
Discharge Plan Problem Reviewed?: Yes Disposition: Home, Self Care Condition: Stable Prescriptions: oxyCODONE [Roxicodone] 5 mg PO Q4HR PRN #30 tablet PRN Reason: Pain Ondansetron Odt [Zofran Odt] 4 mg TL Q6HR PRN #30 tablet PRN Reason: Nausea / Vomiting Folic Acid 1 mg PO DAILY #30 tablet Thiamine [Vitamin B-1] 100 mg PO DAILY #30 tablet Diet: Regular (low fat, small meals.) Activity Restrictions: Activity as Tolerated Health Concerns: He presented to the hospital with recurrence of abdominal pain. You have been seen multiple times for abdominal pain in the emergency room. We think it is from pancreatitis from alcohol abuse. With this episode, your pancreas enzymes are mildly elevated. CT scan of the abdomen was negative for severe inflammation of the pancreas. As you have resumed your regular diet, you do have increasing mild abdominal pain. Plan of Treatment: 1. You will be sent home with a small amount of pain medicine. That can constipate you so to make sure you drink plenty of water and take fiber. 2. You will also be sent home on thiamine and folate. This will help you counteract some of the effects of the alcohol abuse. You only need to take them for [address] scan of the abdomen was negative for severe changes of the pancreas. That is a good thing. However, to make sure that there are no other causes of your abdominal pain, we would recommend that you be referred for a esophagogastroduodenoscopy. That is an upper GI where they put you to sleep, put a video camera down your esophagus into your stomach to make sure you do not have ulcers or inflammation of the stomach. If your [facility] doctor has a specialist in your facility that is great. If you do not, you can be referred to Dr. Thai Carlos' office at [phone] [facility] surgery at [phone]. Care Goals: To remain pain-free and have no further episodes of pancreatitis. We will also stop drinking any alcohol. Assessment: Patient understands care goals. Promises to follow through No Smoking: If you smoke, Please STOP! Call for help. Follow-up with: ELY GARCIA MD [Primary Care Provider] -
--- NOTE | 2020-02-28 09:22 | DISCHARGE SUMMARY ---
"Discharge Summary Admit Date: 02/26/20 Discharge Date: 02/28/20 Discharging Provider: Hailey Hernandez MD Primary Care Provider: [facility] Code Status: Attempt Resuscitation Condition at Discharge: Stable Discharge Disposition: 01 Home, Self Care - DIAGNOSES Discharge Diagnoses with Status of Each Condition: 1. Acute pancreatitis 2. Alcohol intoxication and active alcoholic 3. Obstructive sleep apnea - HPI History of Present Illness: 24-year-old active [employer] male who has been seen at off-and-on in our emergency room since 2017 for nausea, vomiting, occasional diarrhea, and abdominal pain. Over the last few visits this year it has been attributed to alcohol abuse. With this episode of care he has been complaining of substernal pain for a week, located in the subxiphoid area and it radiates to his back. He cannot sleep because of the continued pain. And he is very nauseated and has been able to eat very much. His last alcohol use was last night. He said that the pain was just unbearable so he started drinking even more to try and dull it. His alcohol level in December was 245, and today it is 196.No diarrhea. Positive flatus. Urine is not brown. He was evaluated by Dr. Ca who found him to be afebrile, a pulse in the 80s, and hypertensive in the 170s over 103. He is oxygenating well. He has a moderate to severe tender abdomen. Positive bowel sounds. White cell count is low at 3.7. Hemoglobin is stable at 15.3. INR is 1.1. CMP shows an AST of 93, ALT 72. C-reactive protein 1.5, lipase 95. Calcium and magnesium are normal. His ultrasound of the abdomen shows a hyperechoic liver echotexture representing diffuse fatty liver infiltration but no biliary obstruction or acute cholecystitis. Chest x-ray shows a normal examination. EKG has sinus rhythm with nonspecific ST-T wave changes. EKG looks unchanged from October 23, 2019. Patient is felt to have pancreatitis and abdominal pain from alcohol abuse. He is now placed in observation to control his pain, nausea. 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 They state that there are no beds available. 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 Chest x-ray that is normal. 2. Abdominal ultrasound that had hyperechoic liver echotexture representing diffuse fatty infiltration but no biliary obstruction or acute cholecystitis. 3. Abdominal CT with mild hepatomegaly and moderate hepatic steatosis. Further focal fatty infiltration adjacent to falciform ligament. Spleen is normal. Gallbladder unremarkable and biliary system is nondilated. Pancreas enhances normally. - HOSPITAL COURSE Hospital Course: Patient was treated as pancreatitis with n.p.o. status, antiemetics, pain medicines. CT was done to make sure that he was not developing phlegmon or complications and that was negative. Within 24 to 36 hours he felt that he could start taking a clear liquid diet since his pain had improved tremendously. We did advance his diet to a regular diet within 24 hours. He was having mild increase in pain at discharge but he did not feel that he needed to stay for continued management. Exam at discharge was a temperature 36.5, pulse 76, blood pressure 165/97. Respirations 16 and 99% on room air. He was advised to stop drinking completely. To do this most likely for the rest of his life. He was 5 foot 11 inches tall weight 108.8 kg. Neck was supple. Lungs were clear to auscultation and percussion. PMI was nondisplaced. He still had some mild left flank pain at discharge. But no rebound or guarding on abdominal exam. Normal bowel sounds. He was ambulating in his room without any difficulty and eating a regular diet without difficulty. I asked him to please call on small frequent meals, low-fat. Please see his primary care provider at the [facility] was notified at the [facility] and they will be seeing him about his alcohol abuse. Greater than 30 minutes was spent coordinating discharge. - ALLERGIES Allergies/Adverse Reactions: Allergies Allergy/AdvReac Type Severity Reaction Status Date / Time ioversol Allergy Intermediate Itching/Snorting Verified 10/24/19 17:19 through nose - MEDICATIONS Home Medications: Ambulatory Orders Medication Instructions Recorded Confirmed Folic Acid 1 mg PO DAILY #30 tablet 02/28/20 Ondansetron Odt [Zofran Odt] 4 mg TL Q6HR PRN #30 tablet 02/28/20 Thiamine [Vitamin B-1] 100 mg PO DAILY #30 tablet 02/28/20 oxyCODONE [Roxicodone] 5 mg PO Q4HR PRN #30 tablet 02/28/20 - LABS Result Diagrams: 02/28/20 07:15 02/28/20 07:15"
[2020-02-28 11:41] VITALS: BP 165/97
== END 2020-02-28 11:51 | disposition home or self-care (01) ==
LOC: ED 08:45 → MS3 13:18
PROVIDERS: ADMIT Specialist; ATTEND Specialist
DX: K85.20 Alcohol induced acute pancreatitis without necrosis or infection (principal); F10.129 Alcohol abuse with intoxication, unspecified; Y90.6 Blood alcohol level of 120-199 mg/100 ml; G47.33 Obstructive sleep apnea (adult) (pediatric); K76.0 Fatty (change of) liver, not elsewhere classified; Z79.899 Other long term (current) drug therapy
CPT/HCPCS: 36415; 71045; 74160; 76705; 80048; 80053; 80320; 82150; 83690; 83735; 83880; 84100; 84484; 85025; 86140; 93005; 96361; 96365; 96366; 96372; 96375; 96376; 99284; 99285; A9270; G0378; J1200; J1650; J3411; Q9967

== ENCOUNTER 2020-05-12 23:05 | Emergency (ER) | payer OTHER ==
[2020-05-12 23:12] VITALS: BP 156/97
--- NOTE | 2020-05-13 00:49 | ED Physician Documentation ---
PD HPI SKIN - Stated complaint Stated Complaint: INJECTION SITE PAIN - Chief complaint Chief Complaint: Wound - Additional information Additional information: SEE PAPER CHART ([employer] DOWN TIME) PD PAST MEDICAL HISTORY - Past Medical History Past Medical History: Yes Cardiovascular: None, Other Respiratory: Asthma Neuro: None Endocrine/Autoimmune: None GI: None : None HEENT: None Psych: None Musculoskeletal: Other Derm: None - Past Surgical History Past Surgical History: Yes Ortho: Rotator cuff repair - Present Medications Home Medications: Ambulatory Orders Medication Instructions Recorded Confirmed Albuterol Sulf [Ventolin Hfa 1 - 2 puffs INH Q4HR PRN 05/12/20 05/12/20 Inhaler] Aripiprazole [Abilify] 2 mg PO DAILY 05/12/20 05/12/20 Cyclobenzaprine [Flexeril] 10 mg PO DAILY PRN 05/12/20 05/12/20 Escitalopram Oxalate [Lexapro] 5 mg PO DAILY 05/12/20 05/12/20 Gabapentin [Neurontin] 800 mg PO PRN PRN 05/12/20 05/12/20 Losartan [Cozaar] 50 mg PO BID 05/12/20 05/12/20 hydrOXYzine HCL [Hydroxyzine HCl] 10 mg PO DAILY 05/12/20 05/12/20 - Allergies Allergies/Adverse Reactions: Allergies Allergy/AdvReac Type Severity Reaction Status Date / Time ioversol Allergy Intermediate Itching/Snorting Verified 05/12/20 23:10 through nose - Social History Does the pt smoke?: No Smoking Status: Never smoker Does the pt drink ETOH?: No Does the pt have substance abuse?: No - Immunizations Immunizations are current?: Yes - POLST Patient has POLST: No POLST Status: Full Code Results - Vitals Vitals: Vital Signs - 24 hr 05/12/20 23:10 Temperature 36.8 C Heart Rate 87 Respiratory 16 Rate Blood Pressure 156/97 H O2 Saturation 98 Oxygen O2 Source Room air Departure - Departure Disposition: 01 Home, Self Care Clinical Impression: Pain at injection site Qualifiers: Encounter type: initial encounter Qualified Code(s): T80.89XA - Other complications following infusion, transfusion and therapeutic injection, initial encounter; R52 - Pain, unspecified Condition: Good Discharge Date/Time: 05/13/20 01:34
[2020-05-13] MEDS ORDERED: cephALEXin 250 MG CAPSULE PO ONE (01:36)
== END 2020-05-13 01:34 | disposition home or self-care (01) ==
LOC: ED 23:05
DX: T80.89XA Other complications following infusion, transfusion and therapeutic injection, initial encounter (principal); M54.5 Low back pain; Y84.8 Other medical procedures as the cause of abnormal reaction of the patient, or of later complication, without mention of misadventure at the time of the procedure
CPT/HCPCS: 99282; 99283; A9270

== ENCOUNTER 2020-05-29 09:46 | Outpatient (CLI) | payer OTHER ==
--- NOTE | 2020-05-29 10:16 | SLEEP CARE CONSULTATION ---
Information from patient questionnaire entered by Jesica Arizmendi. I have reviewed and concur with the information entered by Jesica Arizmendi. This document represents the service I personally performed and the decisions made by , Shy Cervantes ARNP. History of Present Illness Service Date and Time: 05/29/2020 0946 Previous diagnosis: Very Severe, Obstructive Sleep Apnea-Hypopnea Syndrome AHI: 60.2 (in 2018) Reason for follow up: annual (last seen 03/2019) Equipment type: CPAP Equipment obtained from: [email or web address] (no supplies since March, needed annual done) Mask style: Nasal (over the nose) Mask brand: Respironics (Wisp) Backup mask available: Yes (old mask) Last cushion change: 6 months ago Prior sleep studies: Yes Year and Where: 2017 - [facility] Type of Sleep Study: Polysomnography HPI additional information: KVNG ELLIS was diagnosed to have very severe, AHI 60.2, obstructive sleep apnea-hypopnea syndrome and returned today for CPAP therapy annual follow-up. CPAP Compliance Data - Data Reviewed with Patient Average duration of nightly device use: 5 hr 22 min Compliance rate %: 67.8 (180 days) Current pressure setting (cmH2O): 10-12 Humidity settin Heated hose settin Average residual AHI: 8.7 Central apnea: 1.5 Obstructive apnea: 4.8 Hypopnea: 2.4 Average large leak: 1 min Subjective Missed days of use due to: reports: family emergency, other (get up with daughter, fall asleep on sofa) Patient concerns: reports: mask discomfort (doesn't stay in place), air blowing in eyes, mask leak noise, epistaxis (during time in Rehab). denies: aerophagia, condensation in mask/hose, nasal congestion, dry mouth, nose, throat, other Observed to snore while using device: No Current pressure setting perceived as: comfortable On therapy, patient: reports: sleeping better, awakening more refreshed, being more awake and alert during the day, more rested overall, drowsiness while driving Initial [place] Sleepiness Scale score: 19 (in 2018) Current [place] Sleepiness Scale score: 14 Allergies and Home Medications Drug allergies reviewed: Yes (ioversol) Home medication list reviewed: Yes Allergy and home medication list: hydroxyzine lexapro abilify gabapentin flexeril Cozaar naltrexal (will start this today) Review of Systems Review of systems same as previous: Yes ([facility] for alcohol abuse) Physical Exam Heart Rate: 99 O2 Saturation: 95 Height: 5 ft 11 in Weight: 254 lb Body Mass Index: 35.4 BMI Classification: Obese Impression and Plan 1. Obstructive Sleep Apnea-Hypopnea Syndrome, very severe, with fair treatment compliance and poor apnea control with elevated residual AHI. On CPAP therapy, the patient has better sleep quality and is more rested overall. His [place] score today is 14 and he still has issues with drowsy driving. The patients pressure will be changed to autoCPAP 12-14 cmH20 For elevation of residual AHI. Patient advised to contact me if pressure change is uncomfortable so that it can be adjusted. Goals for apnea control discussed. Patient would like to try a full face mask, a mask refitting will be ordered. He has had issues with the mask not feeling comfortable with air in his eyes and mask leak noises. He has not changed out his mask in 6 months and I advised him that he needs to change his mask monthly to improve seal of mask to face. Mask leaks can be reduced by washing mask daily and changing mask cushions more frequently to improve mask seal and comfort. He has had some epistaxis in April. His humidity is set at 5 and heated hose at 3. I advised him to decrease his heated hose to increase humidity and reduce bloody noses. Patient's apnea severity and rationale for treatment to reduce apnea, improve sleep quality and reduce cardiovascular and cerebrovascular events was reviewed. I also reviewed the benefit of consistent device use of CPAP for depression/anxiety. * Change auto CPAP pressure to 12-14 cmH2O to try to reduce residual AHI * Mask refitting for full face mask * Adjust heated hose to reduce epistaxis * Notify me if snoring with mask or feeling that the pressure is too much or too little * Attempt to lose weight * Call this office if any problems using CPAP * Return for follow up in 1-2 months , or sooner if concerns arise Counseling Topics: Spare mask, Weight loss health impact Visit Type: In Office Time Spent with Patient (minutes): 23 Provider Statement: I spent 100% of the Face to Face Visit with the patient with greater than 50% spent counseling the patient and coordination of care.
== END 2020-05-29 09:47 | disposition home or self-care (01) ==
LOC: SC 09:46
PROVIDERS: ATTEND Nurse Practitioner Family
DX: G47.33 Obstructive sleep apnea (adult) (pediatric) (principal); E66.9 Obesity, unspecified; Z68.35 Body mass index [BMI] 35.0-35.9, adult
CPT/HCPCS: 99212; 99213

== ENCOUNTER 2020-07-31 07:34 | Outpatient (CLI) | payer OTHER ==
--- NOTE | 2020-07-31 08:10 | SLEEP CARE CONSULTATION ---
Information from patient questionnaire entered by Jesica Arizmendi. I have reviewed and concur with the information entered by Jesica Arizmendi. This document represents the service I personally performed and the decisions made by me, Shy Cervantes ARNP. History of Present Illness Service Date and Time: 07/31/2020 0734 Previous diagnosis: Very Severe, Obstructive Sleep Apnea-Hypopnea Syndrome AHI: 60.2 (in 2018) Reason for follow up: other (2 month with pressure change) Equipment type: CPAP Equipment obtained from: [employer] (needs to get supplies, encouraged to reach out to them) Mask style: Nasal Mask brand: Respironics (Wisp) Backup mask available: Yes (other mask) Last cushion change: 2 months Prior sleep studies: Yes Year and Where: 2017 - [facility] Type of Sleep Study: Polysomnography HPI additional information: KVNG ELLIS was diagnosed to have very severe, AHI 60.2, obstructive sleep apnea-hypopnea syndrome and returned today for CPAP therapy two month pressure change follow-up. CPAP Compliance Data - Data Reviewed with Patient Average duration of nightly device use: 5 hr 59 min Compliance rate %: 91.7 (60 days) Current pressure setting (cmH2O): 12-14 Humidity settin Heated hose settin Average residual AHI: 5.5 Average large leak: 24 min 5 sec Subjective Patient concerns: reports: mask discomfort, air blowing in eyes, mask leak noise. denies: aerophagia, condensation in mask/hose, nasal congestion, dry mouth, nose, throat, epistaxis, other Observed to snore while using device: No Current pressure setting perceived as: comfortable On therapy, patient: reports: sleeping better, awakening more refreshed, being more awake and alert during the day, more rested overall. denies: drowsiness while driving Initial [place] Sleepiness Scale score: 19 Current [place] Sleepiness Scale score: 16 Allergies and Home Medications Drug allergies reviewed: Yes (Iodine) Home medication list reviewed: Yes Allergy and home medication list: Gabapentin Abilify Losartan Cyclobenzaprine Lexapro Hydroxazine Naltrexone Review of Systems Review of systems same as previous: Yes (no changes) Physical Exam Heart Rate: 85 O2 Saturation: 98 Height: 5 ft 11 in Weight: 280 lb Body Mass Index: 39.0 BMI Classification: Obese Impression and Plan 1. Obstructive Sleep Apnea-Hypopnea Syndrome, very severe, with good treatment compliance and fair apnea control with minimal elevated residual AHI. On CPAP therapy, the patient has better sleep quality and is more rested overall. The patients pressure will be changed to autoCPAP 13-15 cmH20 for elevation of residual AHI. Patient advised to contact me if pressure change is uncomfortable so that it can be adjusted. Goals for apnea control discussed. He has just a little mask discomfort from getting air leaking into his eyes. He has not changed out his mask cushion in 2 months. He has one left but does not know when he is to expect more supplies. I advised him to call and talk to his DME supplier about supplies so he may obtain them and be able to change the mask cushion out monthly to reduce mask leaks. Mask leaks can be reduced by washing mask daily and changing mask cushions more frequently to improve mask seal and comfort. He voiced understanding and agreement with plan. Patient's apnea se verity and rationale for treatment to reduce apnea, improve sleep quality and reduce cardiovascular and cerebrovascular events was reviewed. I also reviewed the benefit of consistent device use of CPAP for depression and anxiety. * Change auto CPAP pressure to 13-15 cmH2O * Notify me if snoring with mask or feeling that the pressure is too much or too little * Attempt to lose weight * Call this office if any problems using CPAP * Return for follow up in 3 months, or sooner if concerns arise Counseling Topics: Spare mask, Weight loss health impact Time Spent with Patient (minutes): 20
== END 2020-07-31 07:35 | disposition home or self-care (01) ==
LOC: SC 07:34
PROVIDERS: ATTEND Nurse Practitioner Family
DX: G47.33 Obstructive sleep apnea (adult) (pediatric) (principal); E66.9 Obesity, unspecified; Z68.39 Body mass index [BMI] 39.0-39.9, adult
CPT/HCPCS: 99212; 99213

== ENCOUNTER 2020-09-06 06:14 | Day surgery (SDC) | payer OTHER ==
[2020-09-06] MEDS ORDERED: cefTRIAXone 2 GM VIAL ONE (06:19)
[2020-09-06] MEDS ORDERED: CELECOXIB 100 MG CAPSULE PO ONE (06:20)
[2020-09-06] MEDS ORDERED: ACETAMINOPHEN 1,000 MG/100 ML 100 ML IV ONE (06:20)
[2020-09-06] MEDS ORDERED: GABAPENTIN 400 MG CAPSULE ONE (06:21)
[2020-09-06] MEDS ORDERED: LACTATED RINGERS 1,000 ML IV ONE ×3 (06:38→11:40)
[2020-09-06] MEDS ORDERED: EPINEPHrine 1 MG/ML AMP ONE (07:08)
[2020-09-06] MEDS ORDERED: fentaNYL 100 MCG/2 ML VIAL ONE ×2 (07:22→09:46)
[2020-09-06] MEDS ORDERED: MIDAZOLAM 2 MG/2 ML VIAL ONE (07:22)
[2020-09-06] MEDS ORDERED: PROPOFOL 200 MG/20 ML VIAL IVP ONE ×2 (07:23→10:54)
[2020-09-06] MEDS ORDERED: ROPIVACAINE 0.5% PF 20 ML AMPULE ONE (07:23)
[2020-09-06] MEDS ORDERED: EPINEPHrine 1 MG/ML AMP IR ONE ×2 (07:23)
[2020-09-06] MEDS ORDERED: LIDOCAINE-MPF 2% 5 ML VIAL ONE (07:23)
[2020-09-06] MEDS ORDERED: ROCURONIUM 50 MG/5 ML VIAL ONE (07:25)
[2020-09-06] MEDS ORDERED: DEXAMETHASONE 4 MG/ML VIAL ONE (07:29)
--- NOTE | 2020-09-06 07:43 | ANESTHESIA ---
Pre-Anesthesia VS, & Labs - Diagnosis Right shoulder RTC and labral tears - Procedure Right shoulder arthroscopy with RTC and labral repair Vital Signs: Temp Pulse Resp BP Pulse Ox 36.3 C L 74 18 145/82 H 97 09/06/20 06:30 09/06/20 06:30 09/06/20 06:30 09/06/20 06:30 09/06/20 06:30 Height: 5 ft 11 in Weight (kg): 121.56 kg Body Mass Index: 37.3 BMI Classification: Obese - NPO >8 hours Home Medications and Allergies Home Medications: Ambulatory Orders amLODIPine [Norvasc] 5 mg PO DAILY 09/02/20 Losartan [Cozaar] 50 mg PO 05/12/20 amLODIPine [Norvasc] 5 mg PO DAILY 09/02/20 Allergies/Adverse Reactions: Allergies Allergy/AdvReac Type Severity Reaction Status Date / Time ioversol Allergy Intermediate Itching/Snorting Verified 09/02/20 11:56 through nose Anes History & Medical History - Anesthetic History Anesthesia Complications: reports: No previous complications Family history of Anesthesia Complications: Denies Family history of Malignant Hyperthermia: Denies - Medical History Cardiovascular: reports: Hypertension Pulmonary: reports: Sleep apnea, CPAP use Gastrointestinal: reports: None Urinary: reports: None Neuro: reports: None Musculoskeletal: reports: Other Endocrine/Autoimmune: reports: None Blood Disorders: reports: None Skin: reports: None Smoking Status: Never smoker Psychosocial: reports: Other (naltrexone use- off 10 days) - Surgical History Orthopedic: reports: Other Exam General: Alert, Oriented x3, Cooperative Dental: WNL Mouth Openin Fingerbreadth Neck Mobility: Normal Mallampati classification: III Thyromental Distance: less than 4 cm Respiratory: Lungs clear Cardiovascular: Regular rate Mental/Cognitive Status: Alert/Oriented X3, Normal for patient Cognitive Status: Within normal limits Plan Anesthesia Type: General, Interscalene Block Regional Block: Per Surgeon's request for Post Op pain control Consent for Procedure(s) Verified and Reviewed: Yes Code Status: Attempt Resuscitation ASA classification: 3-Severe systemic disease Is this case an emergency?: No
[2020-09-06] MEDS ORDERED: fentaNYL 100 MCG/2 ML VIAL IVP PRN (07:44)
[2020-09-06] MEDS ORDERED: NALOXONE 0.4 MG/ML VIAL IVP PRN (07:44)
[2020-09-06] MEDS ORDERED: METOCLOPRAMIDE 10 MG/2 ML VIAL IVP PRN (07:44)
[2020-09-06] MEDS ORDERED: ONDANSETRON 4 MG/2 ML VIAL IVP PRN ×2 (07:44→11:08)
[2020-09-06] MEDS ORDERED: HYDROmorphone 0.5 MG/0.5 ML SYRINGE IVP PRN (07:44)
[2020-09-06] MEDS ORDERED: MORPHINE 2 MG/ML CARPUJECT IVP PRN (07:44)
[2020-09-06] MEDS ORDERED: ATROPINE ABBOJECT 1 MG/10 ML SYRINGE IVP PRN (07:44)
[2020-09-06] MEDS ORDERED: ePHEDrine 50 MG/ML VIAL IVP PRN (07:44)
[2020-09-06] MEDS ORDERED: LACTATED RINGERS 1,000 ML IV SCH (08:00)
[2020-09-06] MEDS ORDERED: ONDANSETRON 4 MG/2 ML VIAL ONE (08:07)
[2020-09-06] MEDS ORDERED: METOPROLOL 5 MG/5 ML VIAL IVP ONE (08:21)
[2020-09-06] MEDS ORDERED: BUPIVACAINE 0.25% PF 30 ML VIAL SUBQ ONE ×2 (09:31)
[2020-09-06] MEDS ORDERED: BUPIVACAINE 0.25% PF 30 ML VIAL ONE (09:42)
[2020-09-06] MEDS ORDERED: oxyCODONE 5 MG TABLET PO PRN (11:08)
[2020-09-06] MEDS ORDERED: KETOROLAC 30 MG/ML VIAL ONE (11:27)
--- NOTE | 2020-09-06 11:34 | OPERATIVE REPORT ---
Operative Report - General Procedure Date: 09/06/20 - Procedure Note Anesthesia Technique: General ET tube, Regional block Estimated Blood Loss (mL): 30 - Other Other Information/Narrative: Date of Procedure: 06 September 2020 Planned Procedure: Right shoulder arthroscopy, subacromial decompression, possible biceps tenodesis, possible rotator cuff repair versus debridement Pre-op diagnosis: Right shoulder biceps tendinitis, impingement, rotator cuff tendinitis/bursitis Procedure performed: Right shoulder arthroscopy, limited intra-articular debridement, undersurface rotator cuff debridement, subacromial decompression, open subpectoral biceps tenodesis Post-op diagnosis: Right shoulder biceps tendinitis, subacromial bursitis, partial articular sided supraspinatus fraying Primary Surgeon: BRE HOOPER Secondary Surgeon: Awais Anesthesia: General endotracheal anesthesia with regional block EBL: 30 ml IMPLANTS: Arthrex fiber tack suture anchor x1 for biceps tenodesis POSTOPERATIVE PLAN: 0-2 weeks-Sling at all times. Pendulum exercises 5 times per day. 2-6 weeks-Passive range of motion with the following limits: FF to 120, ER to 40, abduction to 90 6-12 weeks-Active range of motion in all planes without limitation. Isometric rotator cuff strengthening is allowed. Okay to start light bicep strengthening at 6 weeks, formal strengthening at 8 weeks 12-16 weeks-Gradually increase strengthening 16 weeks and beyond-Introduce dynamic activities EXAMINATION UNDER ANESTHESIA: ROM: Forward flexion 180 degrees, abduction 170 degrees, ABER 90, ABIR 80 Anterior load and shift: Normal Posterior load and shift: Normal Inferior sulcus: Negative ARTHROSCOPIC FINDINGS: Rotator interval: Mild fraying of the superior border of the subscapularis and leading edge of the supraspinatus Biceps tendon & SLAP: Superior labrum without significant fraying, peelback with mobile superior labrum and abundant proliferative soft tissue in the posterior superior aspect. The biceps tendon had a positive lipstick lesion consistent with irritation. This was tenotomized at its insertion. Following tenotomy, the superior labrum was contoured using the arthroscopic sucker shaver and radiofrequency ablation wand to a stable tissue level. Subscapularis: Intact Rotator Cuff: Mild undersurface fraying at the leading edge of the supraspinatus. No bursal sided tearing or partial-thickness tearing appreciated at subacromial decompression. HAGL: None Labrum: Intact. 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 He heard a pop and had pain. Nonoperative managment failed to resolve symptoms. Subacromial steroid injection provided transient relief of his lateral shoulder pain, while ultrasound-guided injection of the long head of his biceps tendon sheath provided 3 to 4 months of good relief of his anterior shoulder pain. Both the lateral and anterior shoulder pain returned and he desired operative treatment. The risks, benefits, and alternatives were discussed. Risks included pain, bleeding, infection, damage to nearby structures, lack of symptom relief, implant complications, stiffness, need for further surgeries, DVT, PE, stroke, and even . He signed a written consent form. PROCEDURE IN DETAIL: The patient was met in the preoperative holding on the day of the procedure. Operative extremity was signed. Consent was verified. He desired to proceed. Regional anesthesia was obtained in the preoperative area. They were brought to the operating room and surrendered to anesthesia. Once general anesthesia was obtained they were placed in the lateral decubitus position with the operative side up. An axillary roll was placed and all bony prominences were well-padded. They were then prepped and draped in the standard sterile fashion. A surgical timeout was held to confirm the patient procedure, identity, procedure, laterality, allergies, images, and antibiotics. All were in agreement we proceeded. Balanced suspension was applied and a standard diagnostic arthroscopy was performed utilizing posterior and anterior superior portal sites. The anterior superior portal site was created under direct visualization. The findings of the diagnostic arthroscopy can be found above. The biceps tendon was cut using a meniscal biter, and the remnant stump was debrided using the arthroscopic sucker shaver and radiofrequency ablation wand. At this point we had some difficulty with a radiofrequency ablation wand, requiring restarting of machine, swapping of the hand pieces as well as bringing in an additional tower. Despite all these maneuvers, we could not restore stable functionality of radiofrequency "cut" without tripping machine offline, "coag" did not seem to be affected. A limited intra-articular debridement of the rotator interval, anterosuperior labrum, posterior superior labrum and undersurface of the leading edge of the supraspinatus was performed. Once this is been accomplished, the instruments and cannula were then removed from the glenohumeral joint. The scope trocar was placed in the posterior portal and the acromion was felt. It was then inserted just under the acromion scraping along the bone until the CA ligament was felt. The scope trocar was then brought just lateral to the CA ligament and out the anterior incision. The cannula was then brought over the scope trocar arthroscope were inserted. The arthroscope was backed up until the shaver and arthroscope in the subacromial space. I then systemically debrided the bursa using a sucker shaver, bleeding points were cauterized using radiofrequency ablation on coag only. Following subacromial debridement, the rotator cuff was then evaluated, there was no full thickness tear. Final images were taken. We then turned our attention to the biceps tenodesis, a 6 cm incision was made near the axillary fold centered over the pectoralis major tendon. Electrocautery was used to obtain hemostasis. The fascia was opened with dissection scissors. Blunt digital dissection was used to identify the intertubercular groove just under the pectoralis major tendon. The long head of the biceps tendon was visualized within this interval. The short head of the biceps was retracted with my finger and the right angle was used to deliver the tendon of the long head of the biceps out of the wound. A palm elevator was then used to debride all synovial tissue from the intertubercular groove. A fiber tack suture anchor was placed under direct visualization high in the groove. After ensuring good suture sliding, a free needle was used to whipstitch the biceps tendon from 2 cm proximal to the musculotendinous junction down to the musculotendinous junction, and back to the starting point. The other limb of the suture was then passed using a free needle through the biceps tendon at the 2 cm belinda. Excess tendon was cut off. The pec/deltoid were retracted, and the post was tensioned, delivering the biceps tendon into the incision and securely down onto the anterior surface of the humerus. Tension was maintained on the post, and digital palpation confirmed appropriate tension on the biceps tendon through elbow range of motion. The suture was then tied using at least 6 reversing half hitches on alternating posts. Following fixation there was appropriate tension on the biceps tendon. The suture limbs were cut and the wound was irrigated. The subcutaneous tissue was closed using interrupted 2-0 Vicryl followed by running 3-0 Monocryl in subcuticular fashion. Dermabond was applied to this incision. The portal sites were then closed with 3-0 Monocryl buried. Mastisol and Steri- Strips were applied. 10 mL of quarter percent Marcaine was injected around the biceps tenodesis incision. Xeroform was applied to the portal incisions. We then applied a sterile dressing and a sling. He was awakened and transferred to the recovery room.
[2020-09-06 13:02] VITALS: BP 134/84
--- NOTE | 2020-09-06 13:26 | ANESTHESIA POST OP EVALUATION ---
Anesthesia Post Eval - Post Anesthesia Eval Vitals: Last Vital Signs Temp 36.9 C 09/06/20 13:00 Pulse 90 09/06/20 13:00 Resp 20 09/06/20 13:00 BP 134/84 H 09/06/20 13:00 Pulse Ox 96 09/06/20 13:00 CV Function Including HR & BP: positive: Stable Pain Control: positive: Satisfactory Nausea & Vomiting: positive: Negative Mental Status: positive: Patient Participates Respiratory Status: Airway Patent Hydration Status: Satisfactory
== END 2020-09-06 06:15 | disposition home or self-care (01) ==
LOC: SDS 06:14
PROVIDERS: ATTEND Orthopaedic Surgery
DX: S46.011A Strain of muscle(s) and tendon(s) of the rotator cuff of right shoulder, initial encounter (principal); M75.21 Bicipital tendinitis, right shoulder; M75.51 Bursitis of right shoulder; X50.9XXA Other and unspecified overexertion or strenuous movements or postures, initial encounter; Y93.11 Activity, swimming; Y99.1 Military activity; I10 Essential (primary) hypertension; I20.1 Angina pectoris with documented spasm; G47.30 Sleep apnea, unspecified; J45.909 Unspecified asthma, uncomplicated; K21.9 Gastro-esophageal reflux disease without esophagitis; F10.20 Alcohol dependence, uncomplicated; F17.290 Nicotine dependence, other tobacco product, uncomplicated; E66.3 Overweight; Z68.37 Body mass index [BMI] 37.0-37.9, adult
CPT/HCPCS: 23430; 29823; A9270; C1713; J0131; J7120

== ENCOUNTER 2020-10-24 09:20 | Outpatient (CLI) | payer OTHER ==
--- NOTE | 2020-10-24 09:56 | SLEEP CARE CONSULTATION ---
Information from patient questionnaire entered by Jesica Arizmendi. I have reviewed and concur with the information entered by Jesica Arizmendi. This document represents the service I personally performed and the decisions made by , Shy Cervantes ARNP. History of Present Illness Service Date and Time: 10/24/2020 0920 Previous diagnosis: Very Severe, Obstructive Sleep Apnea-Hypopnea Syndrome AHI: 60.2 (in 2018) Reason for follow up: other (2 month with pressure change) Equipment type: CPAP Equipment obtained from: [employer] (He has not gotten supplies in 2 year) Mask style: Nasal Backup mask available: No (needs new supplies) Last cushion change: 1 year ago Prior sleep studies: Yes Year and Where: 2018 - [facility] Type of Sleep Study: Polysomnography HPI additional information: KVNG ELLIS was diagnosed to have very severe, AHI 60.2, obstructive sleep apnea-hypopnea syndrome and returned today for CPAP therapy 2 month pressure change follow-up. CPAP Compliance Data - Data Reviewed with Patient Average duration of nightly device use: 6 hr 31 min Compliance rate %: 95 (60 days) Current pressure setting (cmH2O): 13-15 (avg 15.0, mean 14.0) Humidity settin Heated hose settin Average residual AHI: 6.5 Central apnea: 0.7 Obstructive apnea: 3.0 Hypopnea: 2.8 Average large leak: 15 min 47 sec Subjective Patient concerns: reports: mask discomfort (due to mask being old), air blowing in eyes, mask leak noise. denies: aerophagia, condensation in mask/hose, nasal congestion, dry mouth, nose, throat, epistaxis, other Observed to snore while using device: No Current pressure setting perceived as: comfortable On therapy, patient: reports: sleeping better, awakening more refreshed, being more awake and alert during the day, more rested overall. denies: drowsiness while driving Initial [place] Sleepiness Scale score: 19 (in 2018) Current [place] Sleepiness Scale score: 5 Allergies and Home Medications Home medication list reviewed: Yes (no changes) Review of Systems Review of systems same as previous: Yes (no changes) Physical Exam Heart Rate: 84 O2 Saturation: 99 Height: 5 ft 11 in Weight: 274 lb Body Mass Index: 38.2 BMI Classification: Obese Impression and Plan 1. Obstructive Sleep Apnea-Hypopnea Syndrome, very severe, with good treatment compliance and fair apnea control with mildly elevated residual AHI. On CPAP therapy, the patient has better sleep quality and is more rested overall. He has been unable to get supplies from [facility] for the last 2 years. He would like to stay with this DME. He has tried to call them about supplies but still has not received any. He has not been able to change his nasal cushion mask for the last year and gets leaking of air with noise because the mask is worn out. I will write a prescription to update supplies to try to get them to send him supplies. The patients pressure will be changed to autoCPAP 12-16 cmH20 for elevation of residual AHI. Patient advised to contact me if pressure change is uncomfortable so that it can be adjusted. Goals for apnea control discussed. Patient's apnea severity and rationale for treatment to reduce apnea, improve sleep quality and reduce cardiovascular and cerebrovascular events was reviewed. I also reviewed the benefit of consistent device use of CPAP for depression/anxiety. * Change auto CPAP pressure to 12-16 cmH2O * Notify me if snoring with mask or feeling that the pressure is too much or too little * Attempt to lose weight * Call this office if any problems using CPAP * Return for follow up in 1-2 months, or sooner if concerns arise Counseling Topics: Spare mask, Weight loss health impact Visit Type: In Office Time Spent with Patient (minutes): 17 Provider Statement: I spent 100% of the Face to Face Visit with the patient with greater than 50% spent counseling the patient and coordination of care.
== END 2020-10-24 09:21 | disposition home or self-care (01) ==
LOC: SC 09:20
PROVIDERS: ATTEND Nurse Practitioner Family
DX: G47.33 Obstructive sleep apnea (adult) (pediatric) (principal); E66.9 Obesity, unspecified; Z68.38 Body mass index [BMI] 38.0-38.9, adult
CPT/HCPCS: 99212

== ENCOUNTER 2020-10-25 09:17 | Emergency (ER) | payer OTHER ==
--- NOTE | 2020-10-25 10:06 | XRAY Report ---
PROCEDURE: Foot 3 View RT INDICATIONS: hit left toes on pipe, now pain TECHNIQUE: 3 views of the foot were acquired. COMPARISON: None FINDINGS: Bones: No fractures or dislocations. No suspicious bony lesions. Soft tissues: No tibiotalar joint effusion. Achilles tendon appears normal. IMPRESSION: No trauma found. Reviewed by: Andrew Ivey MD on 10/25/2020 10:05 AM PDT Approved by: Andrew Ivey MD on 10/25/2020 10:05 AM PDT Station ID: [id number]
--- NOTE | 2020-10-25 11:15 | ED Physician Documentation ---
PD HPI LOWER EXT INJURY - Stated complaint Stated Complaint: LT FT INJ - Chief complaint Chief Complaint: Ext Problem - History obtained from History obtained from: Patient - History of Present Illness PD HPI LOW EXT INJURY LOCATION: Left, Toe (middle) Type of injury: Blunt / blow Where injury occurred: Other (gym) Timing - onset: Today Timing - duration: Minutes Timing - details: Abrupt onset, Still present Improved by: Rest Worsened by: Moving, Palpating Associated symptoms: No: Weakness, Numbness, Tingling, Swelling Similar symptoms before: Has not had sx before Recently seen: Not recently seen - Additional information Additional information: Previously well 25-year-old male was in the gym today when he stubbed his toe on a small piece of metal sticking up out of the ground. He stubbed the left middle toe and has pain over the dorsum of the middle toe and not the other toes or the foot. He is able to walk on this. Review of Systems Constitutional: denies: Fever Respiratory: denies: Cough GI: denies: Vomiting PD PAST MEDICAL HISTORY - Past Medical History Cardiovascular: Hypertension Respiratory: Sleep apnea, CPAP use Neuro: None Endocrine/Autoimmune: None GI: None : None HEENT: None Psych: Depression, Other Musculoskeletal: Other Derm: None - Past Surgical History Past Surgical History: Yes Ortho: Other - Present Medications Home Medications: Ambulatory Orders Medication Instructions Recorded Confirmed No Known Home Medications 10/25/20 10/25/20 - Allergies Allergies/Adverse Reactions: Allergies Allergy/AdvReac Type Severity Reaction Status Date / Time ioversol Allergy Intermediate Itching/Snorting Verified 09/02/20 11:56 through nose iodine Allergy Unknown Verified 10/25/20 09:42 - Social History Does the pt smoke?: No Smoking Status: Never smoker Does the pt drink ETOH?: No Does the pt have substance abuse?: No - Immunizations Immunizations are current?: Yes - POLST Patient has POLST: No POLST Status: Full Code PD ED PE NORMAL - Vitals Vital signs reviewed: Yes (Hypertensive mild) - General General: Alert and oriented X 3, No acute distress, Well developed/nourished - HEENT HEENT: Atraumatic, PERRL, EOMI - Respiratory Respiratory: No respiratory distress - Derm Derm: Normal color, Warm and dry, No rash - Extremities Extremities: No deformity, No edema, Other (Examination of the left foot there is no pain to the dorsal aspect of the foot to deep palpation the ankle flexes and extends easily without difficulty there is no pain to the toes with the exception of the middle toe which is tender from the metatarsal phalangeal joint distally.) - Neuro Neuro: Alert and oriented X 3, pharmacy messenger 2-12 intact, No motor deficit, No sensory deficit, Normal speech Eye Opening: Spontaneous Motor: Obeys Commands Verbal: Oriented GCS Score: 15 - Psych Psych: Normal mood, Normal affect Results - Vitals Vitals: Vital Signs - 24 hr 10/25/20 09:34 Temperature 36.5 C Heart Rate 90 Respiratory 16 Rate Blood Pressure 133/84 H O2 Saturation 96 Oxygen O2 Source Room air - Rads (name of study) foot L Radiology: Prelim report reviewed (Impression: no trauma found.), EMP read indepedently, See rad report PD MEDICAL DECISION MAKING - ED course Complexity details: reviewed results, re-evaluated patient, considered differential, d/w patient ED course: 25-year-old male with a stab to the left middle toe has no evidence of fracture. Departure - Departure Disposition: 01 Home, Self Care Clinical Impression: Contusion of toe of left foot Qualifiers: Encounter type: initial encounter Toe: lesser toe Damage to nail status: without damage Qualified Code(s): S90.122A - Contusion of left lesser toe(s) without damage to nail, initial encounter Condition: Stable Instructions: ED Contusion Lower Ext Follow-Up: Sandra Escobedo MD [Primary Care Provider] -
[2020-10-25 11:29] VITALS: BP 137/82
== END 2020-10-25 11:30 | disposition home or self-care (01) ==
LOC: ED 09:17
DX: S90.122A Contusion of left lesser toe(s) without damage to nail, initial encounter (principal); W22.09XA Striking against other stationary object, initial encounter; Y92.39 Other specified sports and athletic area as the place of occurrence of the external cause; I10 Essential (primary) hypertension
CPT/HCPCS: 99282; 99283

== ENCOUNTER 2020-11-26 08:56 | Outpatient (CLI) | payer OTHER ==
--- NOTE | 2020-11-26 09:17 | SLEEP CARE CONSULTATION ---
Information from patient questionnaire entered by Jesica Arizmendi. I have reviewed and concur with the information entered by Jesica Arizmendi. This document represents the service I personally performed and the decisions made by , Shy Cervantes ARNP. History of Present Illness Service Date and Time: 11/26/2020 0856 Previous diagnosis: Very Severe, Obstructive Sleep Apnea-Hypopnea Syndrome AHI: 60.2 (in 2018) Reason for follow up: one month (with pressure change) Equipment type: CPAP Equipment obtained from: [employer] (getting supplies as needed) Mask style: Nasal (over the nose) Backup mask available: Yes (old mask) Last cushion change: 2 weeks ago Prior sleep studies: Yes Year and Where: 2018 - [facility] Sleep Type of Sleep Study: Polysomnography HPI additional information: KVNG ELLIS was diagnosed to have very severe, AHI 60.2, obstructive sleep apnea-hypopnea syndrome and returned today for CPAP therapy 1 month pressure change follow-up. CPAP Compliance Data - Data Reviewed with Patient Average duration of nightly device use: 6 hr 32 min Compliance rate %: 100 Current pressure setting (cmH2O): 12-16 (mean 13.4, 90% avg 16.0) Humidity settin Heated hose settin Average residual AHI: 6.1 Central apnea: 0.8 Obstructive apnea: 2.9 Hypopnea: 2.5 Average large leak: 18 min 6 sec Subjective Patient concerns: denies: aerophagia, mask discomfort, air blowing in eyes, mask leak noise, condensation in mask/hose, nasal congestion, dry mouth, nose, th roat, epistaxis, other Observed to snore while using device: No Current pressure setting perceived as: comfortable On therapy, patient: reports: sleeping better, awakening more refreshed, being more awake and alert during the day, more rested overall. denies: drowsiness while driving Initial [place] Sleepiness Scale score: 19 (in 2018) Current [place] Sleepiness Scale score: 8 Allergies and Home Medications Home medication list reviewed: Yes (no new meds) Review of Systems Review of systems same as previous: Yes (Right shoulder surgery (biceps tendon/rotator cuff)) Physical Exam Heart Rate: 84 O2 Saturation: 98 Height: 5 ft 11 in Weight: 272 lb Body Mass Index: 37.9 BMI Classification: Obese Impression and Plan 1. Obstructive Sleep Apnea-Hypopnea Syndrome, very severe, with excellent treatm ent compliance and fair apnea control. On CPAP therapy, the patient has better sleep quality and is more rested overall. Patient states current pressure settings are comfortable but is willing to try higher setting to reduce AHI residual. The patients pressure will be changed to autoCPAP 14-17 cmH20 for elevation of residual AHI. Patient advised to contact me if pressure change is uncomfortable so that it can be adjusted. Goals for apnea control discussed. Patient asked about weight loss affecting his AHI. We discussed that reducing his weight will with significant weight loss reduce his AHI and possibly need for higher pressures. Patient voiced understanding. Patient's apnea severity and rationale for treatment to reduce apnea, improve sleep quality and reduce cardiovascular and cerebrovascular events was reviewed. I also reviewed the benefit of consistent device use of CPAP for depression/anxiety. * Change autoCPAP pressure to 14-17 cmH2O * Notify me if snoring with mask or feeling that the pressure is too much or too little * Attempt to lose weight * Call this office if any problems using CPAP * Return for follow up in 1-2 months, or sooner if concerns arise Counseling Topics: Spare mask, Weight loss health impact Visit Type: In Office Time Spent with Patient (minutes): 15 Provider Statement: I spent 100% of the Face to Face Visit with the patient with greater than 50% spent counseling the patient and coordination of care.
== END 2020-11-26 08:57 | disposition home or self-care (01) ==
LOC: SC 08:56
PROVIDERS: ATTEND Nurse Practitioner Family
DX: G47.33 Obstructive sleep apnea (adult) (pediatric) (principal); E66.9 Obesity, unspecified; Z68.37 Body mass index [BMI] 37.0-37.9, adult
CPT/HCPCS: 99212

== ENCOUNTER 2020-12-09 16:09 | Emergency (ER) | payer OTHER ==
[2020-12-09] MEDS ORDERED: TETANUS/DIPHTHERIA/PERTUSSIS 0.5 ML SYRINGE IM ONE (16:47)
[2020-12-09] MEDS ORDERED: BUFFERED LIDOCAINE 10 ML SYRINGE SUBQ STA (16:47)
--- NOTE | 2020-12-09 19:36 | ED Physician Documentation ---
PD HPI UPPER EXT INJURY - Stated complaint Stated Complaint: RIGHT HAND LAC - Chief complaint Chief Complaint: Laceration - History obtained from History obtained from: Patient (Cut his right dominant hand on broken glass at home just prior to arrival. Tetanus is unknown and updated here.) Review of Systems Constitutional: reports: Reviewed and negative Eyes: reports: Reviewed and negative Ears: reports: Reviewed and negative Nose: reports: Reviewed and negative PD PAST MEDICAL HISTORY - Past Medical History Cardiovascular: Hypertension Respiratory: Sleep apnea, CPAP use Neuro: None Endocrine/Autoimmune: None GI: None : None HEENT: None Psych: Depression, Other Musculoskeletal: Other Derm: None - Past Surgical History Past Surgical History: Yes Ortho: Other - Present Medications Home Medications: Ambulatory Orders Medication Instructions Recorded Confirmed No Known Home Medications 10/25/20 12/09/20 - Allergies Allergies/Adverse Reactions: Allergies Allergy/AdvReac Type Severity Reaction Status Date / Time ioversol Allergy Intermediate Itching/Snorting Verified 12/09/20 16:34 through nose iodine Allergy Unknown Verified 12/09/20 16:34 - Social History Does the pt smoke?: No Smoking Status: Never smoker Does the pt drink ETOH?: No Does the pt have substance abuse?: No - Immunizations Immunizations are current?: Yes - POLST Patient has POLST: No POLST Status: Full Code PD ED PE NORMAL - Vitals Vital signs reviewed: Yes - General General: Alert and oriented X 3, No acute distress - Extremities Extremities: Other (On the hypothenar area of the palm of the right hand there is a 1.5 cm laceration gapes just a bit. Flexor tendon function of all the digits is normal and no distal neurovascular compromise.) - Neuro Neuro: Alert and oriented X 3, Normal speech Results - Vitals Vitals: Vital Signs - 24 hr 12/09/20 16:31 Temperature 36.9 C Heart Rate 91 Respiratory 16 Rate Blood Pressure 150/80 H O2 Saturation 98 Oxygen O2 Source Room air Procedures - Laceration (location) Right hand Length in cm: 1.5 Wound type: Linear, Into subcut fat Anesthesia: Lidocaine 1%, With bicarb Wound preparation: Irrigated copiously NS Skin layer closure: Nylon, Interrupted, Size #-0 - enter number (4-0), Sutures - enter # (3) Other: Patient tolerated well, No complications, Neurovascular intact Departure - Departure Disposition: 01 Home, Self Care Clinical Impression: Laceration of right hand Condition: Good Record reviewed to determine appropriate education?: Yes Instructions: ED Laceration Hand Comments: Come back for any signs of infection which would include: Redness, swelling, drainage, increased pain, or fevers. You can wash it soap and water. Keep it covered and moist with bacitracin ointment which is available over the counter; avoid neosporin. Follow-up with your physician in About 14 days for suture removal.
[2020-12-09 19:46] VITALS: BP 149/90
== END 2020-12-09 19:48 | disposition home or self-care (01) ==
LOC: ED 16:09
DX: S61.411A Laceration without foreign body of right hand, initial encounter (principal); W25.XXXA Contact with sharp glass, initial encounter; Y93.89 Activity, other specified
CPT/HCPCS: 12001; 90471; 99282; 99283